=== PATIENT | female | born 1955 | race Hispanic/Latino ===

== ENCOUNTER 2016-06-21 09:33 | Emergency (ER) | payer OTHER, MEDICARE ==
[2016-06-21 09:34] VITALS: BMI 29.7
--- NOTE | 2016-06-21 10:04 | ED PDOC ---
Arrival/HPI - General Chief Complaint: Lower Extremity Problem/Injury Time Seen by Provider: 06/21/16 09:45 Historian: Patient - History of Present Illness Narrative History of Present Illness (Text): 06/21/16 10:00 60yr old female presents today with right foot cast. pt states her screen printing stencil preparer requested that she come to the ER to have cast removed. no fever/chills. denies pain. pt states cast was wet and she has wound and her screen printing stencil preparer advised her to come in to have the cast removed. Patient states she had a cast applied last week and it is to be changed every week or sooner if the cast gets wet. Patient states she felt that the cast was damp yesterday so when she called her screen printing stencil preparer he advised her not to wait until Friday and to come into the emergency room to have the cast removed. Time/Duration: Other (1 day) Symptom Course: Unchanged Quality: Other (NO PAIN) Past Medical History - Provider Review Nursing Documentation Reviewed: Yes - Travel History Have you recently traveled outside [place] w/in the past 3 mons?: No - Cardiac Hx Atrial Fibrillation: Yes Hx Hypertension: Yes - Pulmonary Hx Respiratory Disorders: No - Neurological Other/Comment: NEUROPATHY - HEENT Hx HEENT Disorder: Yes - Renal Hx Renal Disorder: No - Endocrine/Metabolic Hx Diabetes Mellitus Type 2: Yes - Hematological/Oncological Hx Blood Disorders: No - Integumentary Hx Dermatological Disorder: No - Musculoskeletal/Rheumatological Other/Comment: CHARCOT FOOT - Gastrointestinal Hx Gastroesophageal Reflux: Yes - Genitourinary/Gynecological Hx Genitourinary Disorders: No - Psychiatric Hx Anxiety: Yes Hx Substance Use: No - Surgical History Hx Orthopedic Surgery: Yes Other/Comment: BACK SURGERY - Anesthesia Hx Anesthesia: Yes Family/Social History - Physician Review Nursing Documentation Reviewed: Yes Family/Social History: Unknown Family HX Smoking Status: Former Smoker Hx Alcohol Use: Yes Frequency of alcohol use: Socially Hx Substance Use: No Allergies/Home Meds Allergies/Adverse Reactions: Allergies cephalexin [From Keflex] Allergy (Verified 06/21/16 09:37) RASH dexamethasone [From Decadron] Allergy (Verified 06/21/16 09:37) DIZZINESS dexamethasone sod phosphate [From Decadron] Allergy (Verified 06/21/16 09:37) DIZZINESS furosemide [From Lasix] Allergy (Verified 06/21/16 09:37) URTICARIA Sulfa (Sulfonamide Antibiotics) Allergy (Verified 06/21/16 09:37) RASH Home Medications: Home Meds Medication Instructions Recorded Confirmed Acetaminophen [Tylenol Extra 1 tab PO Q6H PRN 11/13/15 06/21/16 Strength] Alprazolam [Xanax] 0.5 mg PO QID PRN 11/13/15 06/21/16 Apixaban [Eliquis] 1 tab PO BID 11/13/15 06/21/16 Carvedilol [Coreg] 25 mg PO BID 11/13/15 06/21/16 Gabapentin 300 mg PO QID 11/13/15 06/21/16 Janumet 50-1,000 mg Tablet 1 tab PO BID 11/13/15 06/21/16 Latanoprost 0.005% Opht [Xalatan 1 drop OU HS 11/13/15 06/21/16 Opht] Pantoprazole Sodium [Protonix] 1 tab PO DAILY 11/13/15 06/21/16 Spironolactone [Aldactone] 1 tab PO DAILY 11/13/15 06/21/16 Venlafaxine [Effexor XR] 75 mg PO DAILY 11/13/15 06/21/16 Review of Systems - Review of Systems Constitutional: absent: Fatigue, Fevers Respiratory: absent: SOB, Cough Cardiovascular: absent: Chest Pain, Palpitations Gastrointestinal: absent: Abdominal Pain, Nausea, Vomiting Genitourinary Female: absent: Dysuria Musculoskeletal: absent: Arthralgias Skin: Skin Lesions (foot wound). absent: Rash, Pruritis Neurological: absent: Headache, Dizziness Physical Exam Vital Signs Reviewed: Yes Vital Signs Temp Pulse Resp BP Pulse Ox 06/21/16 09:44 98.2 F 94 H 16 122/82 99 Temperature: Afebrile Blood Pressure: Normal Pulse: Regular Respiratory Rate: Normal Appearance: Positive for: Well-Appearing, Non-Toxic, Comfortable Pain Distress: None Mental Status: Positive for: Alert and Oriented X 3 - Systems Exam Head: Present: Atraumatic Respiratory/Chest: Present: Clear to Auscultation, Good Air Exchange. No: Respiratory Distress, Accessory Muscle Use Cardiovascular: Present: Regular Rate and Rhythm, Normal S1, S2. No: Murmurs Lower Extremity: Present: Other (total control cast to right leg; ) Neurological: Present: GCS=15 Skin: Present: Warm, Dry, Normal Color Psychiatric: Present: Alert, Oriented x 3 Medical Decision Making ED Course and Treatment: 06/21/16 10:04 60-year-old female presents sent in by screen printing stencil preparer Dr. Jason Rucker for cast removal. Case was discussed with Dr. Rucker in depth. He would like podiatry resident to remove the cast. He states there is a wound that needs to be cleaned with Betadine and in a posterior splint should be applied. Patient will then follow- up in the office with Dr. Rucker on Friday Case discussed with podiatry resident: She is unable to come to the ER. 06/21/16 10:34 case again discussed with dr. Rucker; He would like me to remove the cast and place the patient in a posterior short leg splint. cast removed. there is a dime shaped wound to the plantar lateral aspect of the foot; no surrounding erythema; no purulent discharge. wound cleaned with saline and betadine; dressing applied. posterior short leg splint applied. advised f/u with screen printing stencil preparer on friday. advised walking on toes. Patient verbalizes understanding of discharge instructions and need for immediate followup. impression: cast removal Walk on your toes, use walker Follow up with dr. Rucker on friday return if symptoms worsen,persist or if new symptoms develop. Procedures - Splinting Location: right leg Hand-Made Type: fiberglass Splint: posterior walking (posterior short leg splint.) Pre-Proc Neuro Vasc Exam: normal Post-Proc Neuro Vasc Exam: normal Disposition/Present on Arrival - Present on Arrival Any Indicators Present on Arrival: Yes History of DVT/PE: No History of Uncontrolled Diabetes: Yes Urinary Catheter: No History of Decub. Ulcer: No History Surgical Site Infection Following: None - Disposition Have Diagnosis and Disposition been Completed?: Yes Diagnosis: Visit for cast removal Disposition: HOME/ ROUTINE Disposition Time: Patient Plan: Discharge Condition: GOOD Additional Instructions: Walk on your toes, use walker Follow up with dr. Rucker on friday return if symptoms worsen,persist or if new symptoms develop. Referrals: eNftaly Fabian MD [Primary Care Provider] - Follow up with primary Jason Rucker DPM [Staff Provider] - Follow up with primary
[2016-06-21 10:09] VITALS: BP 122/82; PULSE 94; RESP 16; TEMP 98.2; O2SAT 99
== END 2016-06-21 11:30 | disposition home or self-care (01) ==
LOC: ED 09:33
DX: Z47.89 Encounter for other orthopedic aftercare (principal)

== ENCOUNTER 2018-04-05 09:45 | Inpatient (IN) | payer OTHER, MEDICARE ==
[2018-04-05] MEDS ORDERED: Sodium Chloride 0.9% 500 ML IV STA (10:52)
[2018-04-05] MEDS ORDERED: Albuterol-Ipratrop 3 mg / 0.5 (3 ml) UD IH STA ×2 (11:04→13:16)
--- NOTE | 2018-04-05 11:04 | ED PDOC ---
Arrival/HPI - General Historian: Patient, Spouse - History of Present Illness Narrative History of Present Illness (Text): 04/05/18 10:58 62F w/ a PMH of HTN, HLD, DM, Afib, Anxiety, GERD, most recently underwent surgery of her R foot for charcot foot, in rehab 1mo for IV Vanc. [place] [facility] [place] for complaints of fever and flu like symptoms. Patient's reported that night prior patient began exhibiting some lethargy and cough. This morning patient is complaining of fevers, chills, productive cough, wheezes, body ache. Reports her home economist recently had the flu. Patient denies any hx of COPD/ Asthma. Patient also reporting some R sided flank pain - reported she had kidney stone months ago however she has no urinary symptoms at this time. Does report some mild nausea. Patient also reports new onset LE Edema after her LE surgery. No chest pain, sob, abd pain, dizziness/lightheaded ness PMH: As above PSH: Charcot Foot, Spinal Stenosis, Lumpectomy, R hemicolectmy - Colon CA Home Rx: Effexor 75 QD, Spironolactone, Janumet BID, Oxycodone 5 TID PRN, Eliquis 5 BID, Protonix, Coreg 25 BID, Gabapentin 300 QID, PMD: Rui Cardio: Yael ID: Se Social: Former smoker -20-30 pack year quit 35 years ago, EtOH denies, Illicit Denies Allergies: Keflex, Dexamethasone, Lasix, Sulfa - as per chart 04/05/18 11:17 Time/Duration: Prior to Arrival, 24 hours Symptom Onset: Sudden Symptom Course: Worsening <Curtis Sharif - Last Filed: 04/05/18 14:26> <Neeraj Barahona - Last Filed: 04/05/18 15:32> - General Chief Complaint: Flu-like Symptoms Time Seen by Provider: 04/05/18 09:53 Past Medical History - Provider Review Nursing Documentation Reviewed: Yes - Cardiac Hx Cardiac Disorders: Yes Hx Atrial Fibrillation: Yes Hx Hypertension: Yes - Pulmonary Hx Respiratory Disorders: No - Neurological Hx Neurological Disorder: Yes Other/Comment: NEUROPATHY - HEENT Hx HEENT Disorder: Yes - Renal Hx Renal Disorder: No - Endocrine/Metabolic Hx Endocrine Disorders: Yes Hx Diabetes Mellitus Type 2: Yes - Hematological/Oncological Hx Blood Disorders: No - Integumentary Hx Dermatological Disorder: No - Musculoskeletal/Rheumatological Hx Musculoskeletal Disorders: Yes Hx Spinal Stenosis: Yes Other/Comment: CHARCOT FOOT - Gastrointestinal Hx Gastrointestinal Disorders: Yes Hx Gastroesophageal Reflux: Yes - Genitourinary/Gynecological Hx Genitourinary Disorders: No - Psychiatric Hx Psychophysiologic Disorder: Yes Hx Anxiety: Yes Hx Substance Use: No - Surgical History Hx Orthopedic Surgery: Yes Other/Comment: BACK SURGERY - Anesthesia Hx Anesthesia: Yes <Curtis Sharif - Last Filed: 04/05/18 14:26> - Provider Review Nursing Documentation Reviewed: Yes <Neeraj Barahona - Last Filed: 04/05/18 15:32> Family/Social History - Physician Review Nursing Documentation Reviewed: Yes Family/Social History: Unknown Family HX Smoking Status: Former Smoker Hx Alcohol Use: Yes Hx Substance Use: No <Curtis Sharif - Last Filed: 04/05/18 14:26> - Physician Review Nursing Documentation Reviewed: Yes <Neeraj Barahona - Last Filed: 04/05/18 15:32> Allergies/Home Meds <Curtis Sharif - Last Filed: 04/05/18 14:26> <Neeraj Barahona - Last Filed: 04/05/18 15:32> Allergies/Adverse Reactions: Allergies cephalexin [From Keflex] Allergy (Verified 04/05/18 09:57) RASH dexamethasone [From Decadron] Allergy (Verified 04/05/18 09:57) DIZZINESS dexamethasone sod phosphate [From Decadron] Allergy (Verified 04/05/18 09:57) DIZZINESS furosemide [From Lasix] Allergy (Verified 04/05/18 09:57) URTICARIA Sulfa (Sulfonamide Antibiotics) Allergy (Verified 04/05/18 09:57) RASH Home Medications: Home Meds Medication Instructions Recorded Confirmed Acetaminophen [Tylenol Extra 1 tab PO Q6H PRN 11/13/15 06/21/16 Strength] Alprazolam [Xanax] 0.5 mg PO QID PRN 11/13/15 06/21/16 Apixaban [Eliquis] 1 tab PO BID 11/13/15 06/21/16 Carvedilol [Coreg] 25 mg PO BID 11/13/15 06/21/16 Gabapentin 300 mg PO QID 11/13/15 06/21/16 Janumet 50-1,000 mg Tablet 1 tab PO BID 11/13/15 06/21/16 Latanoprost 0.005% Opht [Xalatan 1 drop OU HS 11/13/15 06/21/16 Opht] Pantoprazole Sodium [Protonix] 1 tab PO DAILY 11/13/15 06/21/16 Spironolactone [Aldactone] 1 tab PO DAILY 11/13/15 06/21/16 Venlafaxine [Effexor XR] 75 mg PO DAILY 11/13/15 06/21/16 Review of Systems - Physician Review All systems were reviewed & negative as marked: Yes - Review of Systems Constitutional: Fatigue, Fevers Eyes: Normal ENT: Normal Respiratory: Cough, Sputum, Wheezing Cardiovascular: Edema. absent: Chest Pain Gastrointestinal: Nausea. absent: Abdominal Pain, Constipation, Diarrhea, Vomiting Genitourinary Female: absent: Dysuria, Hematuria Musculoskeletal: Arthralgias Skin: Normal. absent: Rash Neurological: Headache. absent: Dizziness Endocrine: Normal Hemo/Lymphatic: Normal Psychiatric: Normal <Curtis Sharif - Last Filed: 04/05/18 14:26> Physical Exam Vital Signs Reviewed: Yes Vital Signs Temp Pulse Resp BP 04/05/18 09:57 100.7 F H 98 H 18 146/77 Temperature: Febrile Blood Pressure: Normal Pulse: Regular Respiratory Rate: Normal Appearance: Positive for: Well-Appearing, Non-Toxic, Comfortable Pain Distress: None Mental Status: Positive for: Alert and Oriented X 3 - Systems Exam Head: Present: Atraumatic, Normocephalic Pupils: Present: PERRL Extroacular Muscles: Present: EOMI Conjunctiva: Present: Normal Mouth: Present: Dry, Other (mucous/ sputum appreciated ) Pharnyx: No: ERYTHEMA, EXUDATE, TONSILS ENLARGED Respiratory/Chest: Present: Wheezes Cardiovascular: Present: Regular Rate and Rhythm, Normal S1, S2. No: Murmurs Abdomen: No: Tenderness, Distention Back: Present: Other (Lower back pain). No: CVA Tenderness, Midline Tenderness Upper Extremity: Present: Normal Inspection Lower Extremity: Present: Edema, Other (RLE w/ external hardware in place ) Neurological: Present: GCS=15, CN II-XII Intact Skin: Present: Warm, Dry, Normal Color. No: Rashes Psychiatric: Present: Alert, Oriented x 3 <Curtis Sharif - Last Filed: 04/05/18 14:26> Vital Signs Temp Pulse Resp BP Pulse Ox 04/05/18 11:44 102 H 18 142/71 98 04/05/18 09:57 100.7 F H 98 H 18 146/77 <JunNeeraj L - Last Filed: 04/05/18 15:32> Medical Decision Making ED Course and Treatment: 04/05/18 11:22 URI - most likely viral in nature Wheezing - most likely due to inflammatory changes - however will follow up LE Edema - venostatic vs cardiogenic CBC/CMP Rapid Flu CXR EKG BNP/ TROP VBG SHOCK BOLUS 500CC Motrin 600mg Duoneb EKG is NSR w/o ST/T wave changes HR 97/min 04/05/18 11:50 Lactate Elevated 2.5 Code sepsis called Vancomycin 1gm stat Merem 500mg stat 04/05/18 13:06 BNP 18,000 D/w Dr. Fabian - Who accepts patient for admission Admit: Sepsis + Possible new onset CHF Hyper kalemic - will recheck K+ post 500cc bolus Patient still complaining of wheezing - will give 2nd DUONEB Solumedrol 125 04/05/18 14:27 - RAD Interpretation Radiology Orders: 04/05/18 10:50 CHEST PORTABLE [RAD] Stat - Medication Orders Current Medication Orders: Sodium Chloride (Sodium Chloride 0.9%) 500 mls @ 999 mls/hr IV .Q31M STA Stop: 04/05/18 11:22 Discontinued Medications Ibuprofen (Motrin Tab) 600 mg PO STAT STA Stop: 04/05/18 10:54 <Curtis Sharif - Last Filed: 04/05/18 14:26> ED Course and Treatment: In agreement with resident note, which includes further HPI details. Patient was seen and evaluated with resident, came up with plan and treatment together. 62 year old female presents complaining of fever and flu-like symptoms. Patient is complaining of fevers, chills, productive cough, wheezes, body ache. Patient is also complaining of right flank pain. Plan: -- CT Abd & pelvis IV Contrast -- Labs -- Morphine, IV Fluids, Merrem, Motrin tab, IV Fluids, Vancomycin -- Blood Culture, Urine Culture -- Urinary Straight Catheterization -- Influenza A B, Procalcitonin -- Urinalysis w micro -- reassess and disposition 04/05/18 11:42 Code sepsis called EKG shows NSR at [address] elevations, nl intervals Patient noted to have UTI. Case was discussed with Dr. Fabian who accepts the admission on his service. There is a new elevated BNP with no previous. CXR shows cardiomegally but no noted congestions or infiltrate. Lungs improved with albuteral tx. Potassium level repeated and normal. 04/05/18 14:31 Patient appears better and perked up more. She denies any shortness of breathe at this time. - Critical Care Critical Care Minutes: 30 minutes - Lab Interpretations Lab Results: pO2 36 mm/Hg (30-55) 04/05/18 11:15 VBG pH 7.35 (7.32-7.43) 04/05/18 11:15 VBG pCO2 51.0 (40-60) 04/05/18 11:15 VBG HCO3 28.2 mmol/l (21-28) H 04/05/18 11:15 VBG Total CO2 29.8 mmol.L (22-28) H 04/05/18 11:15 VBG O2 Sat (Calc) 70.7 % (40-65) H 04/05/18 11:15 VBG Base Excess 1.7 mmol/L (0.0-2.0) 04/05/18 11:15 VBG Potassium 5.5 mmol/L (3.6-5.2) H 04/05/18 11:15 Sodium 133.0 mmol/L (132-148) 04/05/18 11:15 Chloride 101.0 mmol/L (98-107) 04/05/18 11:15 Glucose 165 mg/dl (65-105) H 04/05/18 11:15 Lactate 2.5 mmol/L (0.7-2.1) H 04/05/18 11:15 FiO2 21.0 % 04/05/18 11:15 Crit Value Called To Maria De Jesus thomas research program intern 04/05/18 11:15 Crit Value Called By Cecile 04/05/18 11:15 Blood Gas Notified Time 1138 04/05/18 11:15 PT 33.9 SECONDS (9.4-12.5) H 04/05/18 11:15 INR 3.00 04/05/18 11:15 APTT 41.8 Seconds (26.9-38.3) H 04/05/18 11:15 Troponin I < 0.01 ng/mL 04/05/18 11:15 NT-Pro-B Natriuret Pep 80380 pg/mL (0-450) H 04/05/18 11:15 Total Bilirubin 1.2 mg/dL (0.2-1.3) 04/05/18 11:15 AST 14 U/L (14-36) 04/05/18 11:15 ALT 12 U/L (7-56) 04/05/18 11:15 Alkaline Phosphatase 177 U/L (38-126) H D 04/05/18 11:15 Total Protein 7.3 g/dL (5.8-8.3) 04/05/18 11:15 Albumin 3.5 g/dL (3.0-4.8) 04/05/18 11:15 Globulin 3.9 gm/dL 04/05/18 11:15 Albumin/Globulin Ratio 0.9 (1.1-1.8) L 04/05/18 11:15 Urine Color Yellow (YELLOW) 04/05/18 12:10 Urine Appearance Sl cloudy (CLEAR) 04/05/18 12:10 Urine pH 6.0 (4.7-8.0) 04/05/18 12:10 Ur Specific Stow >= 1.030 (1.005-1.035) 04/05/18 12:10 Urine Protein 100 mg/dL (<30 mg/dL) H 04/05/18 12:10 Urine Glucose (UA) Negative mg/dL (NEGATIVE) 04/05/18 12:10 Urine Ketones Negative mg/dL (NEGATIVE) 04/05/18 12:10 Urine Blood Negative (NEGATIVE) 04/05/18 12:10 Urine Nitrate Positive (NEGATIVE) H 04/05/18 12:10 Urine Bilirubin Negative (NEGATIVE) 04/05/18 12:10 Urine Urobilinogen 1.0 E.U./dL (<1 E.U./dL) H 04/05/18 12:10 Ur Leukocyte Esterase Trace Rosa/uL (NEGATIVE) H 04/05/18 12:10 Urine RBC None /hpf (0-2) 04/05/18 12:10 Urine WBC 10 - 15 /hpf (0-6) H 04/05/18 12:10 Ur Epithelial Cells 6 - 8 /hpf (0-5) H 04/05/18 12:10 Urine Bacteria Mod /hpf (NONE) 04/05/18 12:10 I have reviewed the lab results: Yes - RAD Interpretation Radiology Orders: 04/05/18 10:50 CHEST PORTABLE [RAD] Stat Software Developer Mid Level: Radiologist - EKG Interpretation Interpreted by ED Physician: Yes Type: 12 lead EKG - Medication Orders Current Medication Orders: Vancomycin HCl (Vancomycin 1gm) 1 gm in 250 mls @ 167 mls/hr IVPB STAT STA; Protocol Stop: 04/05/18 13:14 Discontinued Medications Albuterol/Ipratropium (Duoneb 3 Mg/0.5 Mg (3 Ml) Ud) 3 ml IH STAT STA Stop: 04/05/18 11:05 Last Admin: 04/05/18 11:49 Dose: 3 ml Sodium Chloride (Sodium Chloride 0.9%) 500 mls @ 999 mls/hr IV .Q31M STA Stop: 04/05/18 11:22 Last Admin: 04/05/18 11:15 Dose: 999 mls/hr eMAR Start Stop Document 04/05/18 11:15 EQ (Rec: 04/05/18 11:49 EQ [id number]) Intravenous Solution Start Date 04/05/18 Start Time 11:15 Meropenem/Sodium Chloride (Merrem Iv 500 Mg/Ns 50 Ml) 500 mg in 50 mls @ 100 mls/hr IVPB Q8 STA; Protocol Stop: 04/05/18 12:14 Last Admin: 04/05/18 12:02 Dose: 100 mls/hr eMAR Start Stop Document 04/05/18 12:02 EQ (Rec: 04/05/18 12:02 EQ [id number]) Intravenous Solution Start Date 04/05/18 Start Time 12:02 Ibuprofen (Motrin Tab) 600 mg PO STAT STA Stop: 04/05/18 10:54 Last Admin: 04/05/18 11:49 Dose: 600 mg MAR Pain/Vitals Document 04/05/18 11:49 EQ (Rec: 04/05/18 11:49 EQ [id number]) Pain Reassessment Is This A Pain ReAssessment? No Sleep Is patient sleeping during reassessment? No Presence of Pain Presence of Pain Yes <Neeraj Barahona - Last Filed: 04/05/18 15:32> - Scribe Statement The provider has reviewed the documentation as recorded by the Milo Phillips Provider Scribe Attestation: All medical record entries made by the Ishaanibsadi were at my direction and personally dictated by me. I have reviewed the chart and agree that the record accurately reflects my personal performance of the history, physical exam, medical decision making, and the department course for this patient. I have also personally directed, reviewed, and agree with the discharge instructions and disposition. <Neeraj Barahona - Last Filed: 04/05/18 15:32> Disposition/Present on Arrival - Present on Arrival Any Indicators Present on Arrival: Yes History of DVT/PE: No History of Uncontrolled Diabetes: Yes Urinary Catheter: No History of Decub. Ulcer: No History Surgical Site Infection Following: None - Disposition Have Diagnosis and Disposition been Completed?: Yes Disposition Time: 13:10 Patient Plan: Telemetry <Curtis Sharif - Last Filed: 04/05/18 14:26> <Neeraj Barahona - Last Filed: 04/05/18 15:32> - Disposition Diagnosis: Sepsis, UTI (urinary tract infection) Disposition: HOSPITALIZED Patient Problems: Current Active Problems Problem Status Onset Sepsis Acute Condition: STABLE
[2018-04-05 11:30] LABS: BASO # 0.01 K/mm3 (0.0-2.0); BASO % 0.2 % (0.0-3.0); EOS % 0.3 % (1.5-5.0); HEMOGLOBIN 8.9 g/dL (12.0-16.0); LYMPH # 0.6 (1.2-3.4); LYMPH % 9.7 % (22.0-35.0); MEAN CELL VOLUME 86.1 fl (80.0-105.0); MEAN CORPUSCULAR HEMOGLOBIN 24.7 pg (25.0-35.0); MEAN CORPUSCULAR HGB CONC 28.7 g/dl (31.0-37.0); MEAN PLATELET VOLUME 9.5 fl (7.0-11.0); MONO # 0.3 (0.1-0.6); MONO % 5.4 % (1.0-6.0); RBC 3.6 10^6/uL (3.5-6.1); RED CELL DISTRIBUTION WIDTH 18.5 % (11.5-14.5); WHITE BLOOD COUNT 6.1 10^3/uL (4.5-11.0)
[2018-04-05 11:38] LABS: VENOUS BLOOD GAS BASE EXCESS 1.7 mmol/L (0.0-2.0); VENOUS BLOOD GAS PO2 36 mm/Hg (30-55); VENOUS BLOOD PH 7.35 (7.32-7.43)
[2018-04-05 11:40] LABS: PARTIAL THROMBOPLASTIN TIME 41.8 Seconds (26.9-38.3); PROTHROMBIN TIME 33.9 SECONDS (9.4-12.5)
[2018-04-05 11:44] LABS: ALB/GLOB RATIO 0.9 (1.1-1.8); ALBUMIN 3.5 g/dL (3.0-4.8); ALT/SGPT 12 U/L (7-56); AST/SGOT 14 U/L (14-36); BLOOD UREA NITROGEN 11 mg/dL (7-21); CALCIUM 9.1 mg/dL (8.4-10.5); GFR NON-AFRICAN AMERICAN > 60
[2018-04-05] MEDS ORDERED: MEROPENEM 500 MG in NS 500 MG/50 ML BAG IVPB STA (11:45)
[2018-04-05] MEDS ORDERED: Vancomycin 1gm in NS 250ml 1 GM/250 ML BAG IVPB STA (11:45)
[2018-04-05 11:56] LABS: B-TYPE NATRIURETIC PEPTIDE 18000 pg/mL (0-450); TROPONIN I < 0.01 ng/mL
[2018-04-05 12:32] LABS: URINE BILIRUBIN NEGATIVE (NEGATIVE); URINE BLOOD NEGATIVE (NEGATIVE); URINE GLUCOSE (UA) NEGATIVE (NEGATIVE); URINE LEUKOCYTE ESTERASE TRACE Leu/uL (NEGATIVE); URINE PROTEIN 100 mg/dL (<30 mg/dL)
[2018-04-05 12:35] LABS: URINE COLOR YELLOW (YELLOW)
[2018-04-05 12:36] LABS: URINE APPEARANCE SL CLOUDY (CLEAR)
[2018-04-05 12:41] LABS: URINE BACTERIA MOD /hpf
[2018-04-05 14:45] LABS: VENOUS BLOOD GAS BASE EXCESS 2.1 mmol/L (0.0-2.0); VENOUS BLOOD GAS PO2 74 mm/Hg (30-55); VENOUS BLOOD PH 7.47 (7.32-7.43)
[2018-04-05 15:40] VITALS: BMI 31.5
--- NOTE | 2018-04-05 16:16 | CARD ---
APPROVED REPORT Date of service: 04/05/2018 EKG Measurement Heart [id number] <Conclusion> Normal sinus rhythm Rightward axis Nonspecific ST-T abnormalities Abnormal ECG
--- NOTE | 2018-04-05 16:17 | RAD ---
Date of service: 04/05/2018 HISTORY: Sepsis Patient COMPARISON: No prior. FINDINGS: LUNGS: Evaluation of the left lung base is limited due to overlying enlarged cardiac silhouette there may be some minimal atelectasis right lung base. Biapical pleural thickening present. PLEURA: No significant pleural effusion identified, no pneumothorax apparent. CARDIOVASCULAR: Questionable minimal aortic atherosclerotic calcification present. Cardiomegaly. No pulmonary vascular congestion. OSSEOUS STRUCTURES: No significant abnormalities. VISUALIZED UPPER ABDOMEN: Normal. OTHER FINDINGS: None. IMPRESSION: Biapical pleural thickening. Minimal right basilar atelectasis left lung base is poorly evaluated due to overlying with enlarged cardiac silhouette.
[2018-04-05] MEDS: Insulin Reg-LOW-Coverage SC SCH ×2 (16:41→23:46)
--- NOTE | 2018-04-05 17:55 | PCM.SEPTIC ---
Sepsis Progress Note - Reassessment Type Date of Evaluation: 04/05/18 Time of Evaluation: 04:00 Reassessment Type: Non-invasive reassessment - Non Invasive Reassessment Were the most recent vital sign reviewed: Yes Vital Sign (Latest): Temp Pulse Resp BP Pulse Ox 99.5 F 81 18 135/65 98 04/05/18 13:00 04/05/18 16:18 04/05/18 16:18 04/05/18 16:18 04/05/18 16:18 Cardiovascular: Yes: Regular Rate, Rhythm Respiratory: Yes: Normal Breath Sounds. No: Decreased Breath Sounds, Accessory Muscle Use, Rales, Rhonchi, Stridor Capillary Refill: Normal (Less than 2 sec) Pulses: Normal Radial, Normal Dorsalis Pedis, Normal Posterior Tibialis Skin: Normal Color
[2018-04-05] MEDS: oxyCODONE 5 mg Immediate Release Tab PO PRN (20:50)
[2018-04-05] MEDS ORDERED: Iron Sucrose 100 mg/5 ml Inj IVP ONE (22:05)
[2018-04-06] MEDS: Latanoprost 2.5 ml Opht Soln OU SCH ×2 (00:15→23:00)
--- NOTE | 2018-04-06 09:24 | CON ---
DATE OF CONSULTATION: 04/06/2018 REQUESTING PHYSICIAN: Dr. Fabian. REASON FOR CONSULTATION: Dyspnea. HISTORY: This is a 62-year-old woman well-known to me with a history of heart failure with a recovered ejection fraction, prior congestive cardiomyopathy, paroxysmal atrial fibrillation, colon cancer resection, and Charcot foot, who has undergone a complex surgery involving her foot, admitted with fever and flu-like symptoms. She had undergone a rehabilitation stay in [place] after surgery for her Charcot foot. She, over the past several days, had worsening cough and dyspnea. Upon discharge from the rehabilitation center she had marked peripheral edema and had been started on diuretic therapy. She presents to emergency room complaining of fever, chills, productive cough, myalgias and wheezing. PAST MEDICAL HISTORY: Her past history is notable for the problems mentioned above. She also has a history of diabetes, paroxysmal atrial fibrillation, prior right hemicolectomy for colon cancer, prior breast lumpectomy, as well as spinal stenosis and the aforementioned Charcot foot. MEDICATIONS: Medications at home included spironolactone, Janumet, Eliquis Protonix, carvedilol, gabapentin and Effexor. SOCIAL HISTORY: She is a former smoker, having quit many years ago. She denies alcohol use. She is , lives at home with her . 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 ALLERGIES: SHE HAS HAD REACTIONS TO SULFA, FUROSEMIDE, DEXAMETHASONE, AND KEFLEX IN THE PAST. FAMILY HISTORY: Both parents are from age-related illness. REVIEW OF SYSTEMS: Ten-point review of systems is otherwise notable mainly for the problems mentioned above. She has undergone prior back surgeries as well. PHYSICAL EXAMINATION: GENERAL: She is an overweight, middle-aged woman. VITAL SIGNS: Her blood pressure is 136/76 with a pulse of 80 and sinus, respirations are 16. She is currently afebrile. HEENT: Normocephalic, atraumatic. NECK: Supple. No JVD noted. CHEST: Bilateral scattered rhonchi heard. HEART: PMI displaced laterally with a systolic murmur at the left sternal border. ABDOMEN: Soft, protuberant. Normoactive bowel sounds are present. EXTREMITIES: A fixation device is present over her right foot. 2+ peripheral edema is noted to her thighs. SKIN: Warm and dry. PSYCHIATRIC: Moderate anxiety, otherwise normal mood and affect. NEUROLOGICAL: Alert and oriented x3. No gross motor or sensory deficits, although she does have limited motion of her right foot due to the fixation device. DIAGNOSTIC DATA: White count 6.1, hemoglobin and hematocrit are 8.9 and 31 with a platelet count of 295,000. PT/PTT are 3.9 and 41.8. Venous blood gas 7.47, pCO2 of 35, pO2 of 74. Potassium 5.4, repeat is 4.5. BUN and creatinine are 11 and 0.9, glucose 160, magnesium 1.3. Troponin is negative. BNP 18,000. Influenza serology is negative. Chest x-ray reveals increased cardiac silhouette with right basilar atelectasis. Electrocardiogram reveals sinus rhythm with a rightward axis, nonspecific ST-T abnormalities. IMPRESSION: 1. Cough and fever suggestive of acute respiratory illness, possible bronchitis. 2. History of congestive cardiomyopathy with recovered ejection fraction, needs reevaluation at this time. 3. Chronic anemia. 4. Status post right foot surgery. 5. Paroxysmal atrial fibrillation, remains in sinus rhythm; however, remains on Eliquis given recent leg immobilization. 6. Status post colon cancer resection, stable at present. 7. Peripheral edema, unclear if this is due to dependent position and fluid retention versus other cause. RECOMMENDATIONS: Oral diuretic therapy will continue for now. An echocardiogram has been ordered. A CT of the abdomen and pelvis is being planned. Cultures were drawn and are pending. Antibiotics will be continued pending those results. Her current cardiac medications will continue as well. Thank you for this consultation. We will be happy to follow her through her hospital course and make further adjustments as appropriate. Al Conley MD
[2018-04-06] MEDS ORDERED: Iron Sucrose 100 mg/5 ml Inj IVP ONE (09:39)
[2018-04-06] MEDS: Venlafaxine 75 mg ER Cap PO SCH (09:55)
[2018-04-06] MEDS: Insulin Reg-LOW-Coverage SC SCH ×4 (09:56→23:01)
[2018-04-06] MEDS: Pantoprazole 40 mg EC Tab PO SCH (09:56)
[2018-04-06] MEDS: Albuterol-Ipratrop 3 mg / 0.5 (3 ml) UD IH PRN (11:26)
--- NOTE | 2018-04-06 13:45 | CP.PCM.CON ---
<BelenJuan David - Last Filed: 04/06/18 13:42> History of Present Illness - History of Present Illness History of Present Illness: Podiatry consult notes for ; 62 y/o F w/ a PMH of HTN, HLD, DM, Afib, Anxiety, GERD, Neuropathy Seen and evaluated 2 months s/p surgery of her R foot for Charcot foot reconstruction using External fixator. Patient was in rehab 1 M for IV Vanc. Patient states that she had Charcot reconstruction surgery 2 months ago with a surgeon at [facility] (Dr. Nasim Watson) patient states that she had Ex-fix in her foot and her and her nurse used to do daily dressing change using dakins and DSD. She states that she doesn't have pain at the surgery site now. She states that she has tingling, numbness and burning sensation in her feet all the times as she has neuropathy. She states that she came to the hospital this time as she developed UTI. Patient mentioned that 2 weeks ago her legs got hard and edematous.. Patient states that she had fevers, chills, productive cough, wheezes, and body ache yesterday. 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 Patient denies any hx of COPD/ Asthma. . Patient also reports new onset LE Edema after her LE surgery. She denies any chest pain, sob, abd pain, dizziness/lightheaded ness PMH: HTN, HLD, DM, Afib, Anxiety, GERD, Neuropathy. PSH: Charcot Foot, Spinal Stenosis, Lumpectomy, R hemicolectmy - Colon CA Allergies: Keflex, Dexamethasone, Lasix, Sulfa - as per chart Social: Former smoker -20-30 pack year quit 35 years ago, EtOH denies, Illicit Denies Review of Systems - Review of Systems Review of Systems: As per HPI - Constitutional Constitutional: As Per HPI Past Patient History - Past Social History Smoking Status: Never Smoked - CARDIAC Hx Cardiac Disorders: Yes Hx Hypertension: Yes - PULMONARY Hx Respiratory Disorders: No - NEUROLOGICAL Hx Neurological Disorder: Yes Other/Comment: NEUROPATHY - HEENT Hx HEENT Problems: Yes - RENAL Hx Chronic Kidney Disease: No - ENDOCRINE/METABOLIC Hx Endocrine Disorders: Yes Hx Diabetes Mellitus Type 2: Yes - HEMATOLOGICAL/ONCOLOGICAL Hx Blood Disorders: No - INTEGUMENTARY Hx Dermatological Problems: No - MUSCULOSKELETAL/RHEUMATOLOGICAL Hx Falls: No - GASTROINTESTINAL Hx Gastrointestinal Disorders: Yes Hx Gastroesophageal Reflux: Yes - GENITOURINARY/GYNECOLOGICAL Hx Genitourinary Disorders: No - PSYCHIATRIC Hx Psychophysiologic Disorder: Yes Hx Anxiety: Yes - SURGICAL HISTORY Hx Surgeries: Yes (colectomy) Hx Mastectomy: (lumpectomy) Hx Orthopedic Surgery: Yes Other/Comment: BACK SURGERY - ANESTHESIA Hx Anesthesia: Yes Meds Allergies/Adverse Reactions: Allergies Allergy/AdvReac Type Severity Reaction Status Date / Time cephalexin [From Keflex] Allergy RASH Verified 04/05/18 09:57 dexamethasone [From Decadron] Allergy DIZZINESS Verified 04/05/18 09:57 dexamethasone sod phosphate Allergy DIZZINESS Verified 04/05/18 09:57 [From Decadron] furosemide [From Lasix] Allergy URTICARIA Verified 04/05/18 09:57 Sulfa (Sulfonamide Allergy RASH Verified 04/05/18 09:57 Antibiotics) - Medications Medications: Current Medications Albuterol/Ipratropium (Duoneb 3 Mg/0.5 Mg (3 Ml) Ud) 3 ml IH [id number] PRN PRN Reason: Cough and congestion Last Admin: 04/06/18 11:26 Dose: 3 ml Alprazolam (Xanax) 0.5 mg PO QID PRN; Protocol PRN Reason: Anxiety Last Admin: 04/06/18 12:00 Dose: 0.5 mg Apixaban (Eliquis) 5 mg PO BID [facility]; Protocol Last Admin: 04/06/18 09:55 Dose: 5 mg Azithromycin (Zithromax) 500 mg PO DAILY [facility]; Protocol Last Admin: 04/06/18 11:23 Dose: 500 mg Carvedilol (Coreg) 25 mg PO BID [facility] Last Admin: 04/06/18 09:56 Dose: 25 mg Docusate Sodium (Colace) 100 mg PO DAILY [facility] Insulin Human Regular (Humulin R Low) 0 units SC [facility]; Protocol Last Admin: 04/06/18 09:56 Dose: 1 units Latanoprost (Xalatan Opht) 0.02 ml OU HS [facility] Last Admin: 04/06/18 00:15 Dose: Not Given Oseltamivir Phosphate (Tamiflu Cap) 75 mg PO BID [facility]; Protocol Stop: 04/10/18 17:58 Last Admin: 04/06/18 09:55 Dose: 75 mg Oxycodone HCl (Oxycodone Immediate Release Tab) 5 mg PO Q4 PRN PRN Reason: Pain, moderate (4-7) Last Admin: 04/05/18 20:50 Dose: 5 mg Pantoprazole Sodium (Protonix Ec Tab) 40 mg PO DAILY [facility] Last Admin: 04/06/18 09:56 Dose: 40 mg Polyethylene Glycol (Miralax) 17 gm PO BID [facility] Venlafaxine HCl (Effexor Xr) 75 mg PO DAILY [facility] Last Admin: 04/06/18 09:55 Dose: 75 mg Physical Exam - Constitutional Appears: Well, Non-toxic, No Acute Distress - Head Exam Head Exam: ATRAUMATIC, NORMOCEPHALIC - Extremities Exam Additional comments: R LE focused exam: Vasc: DP 1/4 & PT is non palpable due to edema, +1 pitting edema of Noted extending up to the R tibial tuberosity, Cap refill < 3 sec to all digits, Temp gradient is warm to warm. No Erythema noted to the Right foot. Neuro: Gross sensation intact while protective sensations demnished. Derm: External fixator at the Right LE. Pin tracts looks clean, dry, No drai nage, No erythema, No clinical signs of active infection. Maceration noted at 2 of the pins on the lateral side. An ulcer noted measuring 1.4 cm X 1.2 cm X 0.4 cm. Nodrainage, No erythema, No probe to bone, No tracking, No undermining, No clinical signs of active infection. MSK: No pain on paplpating the pin tract sites. Pins and fracmes are in place with no signs of failure or loosening of the construct. - Neurological Exam Neurological exam: Alert, Oriented x3 - Psychiatric Exam Psychiatric exam: Normal Affect, Normal Mood Results - Vital Signs Recent Vital Signs: Last Vital Signs Temp 97.9 F 04/06/18 12:00 Pulse 89 04/06/18 12:00 Resp 20 04/06/18 12:00 BP 135/72 04/06/18 12:00 Pulse Ox 93 L 04/06/18 06:00 - Labs Result Diagrams: 04/05/18 11:15 04/05/18 14:35 Labs: Laboratory Results - last 24 hr 0204/05/18 04/05/18 11:15 14:35 14:35 pO2 74 H VBG pH 7.47 H VBG pCO2 35.0 L VBG HCO3 25.5 VBG Total CO2 26.6 VBG O2 Sat (Calc) 98.1 H VBG Base Excess 2.1 H VBG Potassium 4.5 Sodium 133.0 Chloride 103.0 Glucose 151 H Lactate 1.8 FiO2 21.0 Potassium 4.5 POC Glucose (mg/dL) Procalcitonin 0.24 Venous Blood Potassium 4.5 04/05/18 04/05/18 04/06/18 16:26 23:38 07:21 pO2 VBG pH VBG pCO2 VBG HCO3 VBG Total CO2 VBG O2 Sat (Calc) VBG Base Excess VBG Potassium Sodium Chloride Glucose Lactate FiO2 Potassium POC Glucose (mg/dL) 166 H 252 H 188 H Procalcitonin Venous Blood Potassium 04/06/18 11:35 pO2 VBG pH VBG pCO2 VBG HCO3 VBG Total CO2 VBG O2 Sat (Calc) VBG Base Excess VBG Potassium Sodium Chloride Glucose Lactate FiO2 Potassium POC Glucose (mg/dL) 192 H Procalcitonin Venous Blood Potassium Assessment & Plan - Assessment and Plan (Free Text) Assessment: 62 y/o F w/ a PMH of HTN, HLD, DM, Afib, Anxiety, GERD, Neuropathy Seen and evaluated 2 months s/p surgery of her R foot for charcot foot reconstruction using External fixator. Plan: Patient seen and evaluated at bedside Discussed with attending, Dr. Vallejo Charts, labs, vitals reviewed = afebrile, WBC leukocytosis @ 6.1 Wound Cx collected and sent to the lab. Ordered R foot, R ankle and R tib-fibula x-ray Ordered Venous duplex Patient admitted for UTI Ordered dakins solution for wound dressing and pin tract care. Pin tract care using Dakins solution and DSD Ulcer dressing using Dakins wet to dry and DSD. Podiatry will continue to follow up the patient while in house Thank you for consulting podiatry service. - Date & Time Date: 04/06/18 Time: 13:45 <Hector Vallejo - Last Filed: 04/06/18 17:42> Meds - Medications Medications: Current Medications Albuterol/Ipratropium (Duoneb 3 Mg/0.5 Mg (3 Ml) Ud) 3 ml IH [id number] PRN PRN Reason: Cough and congestion Last Admin: 04/06/18 11:26 Dose: 3 ml Alprazolam (Xanax) 0.5 mg PO QID PRN; Protocol PRN Reason: Anxiety Last Admin: 04/06/18 12:00 Dose: 0.5 mg Apixaban (Eliquis) 5 mg PO BID [facility]; Protocol Last Admin: 04/06/18 17:17 Dose: 5 mg Azithromycin (Zithromax) 500 mg PO DAILY [facility]; Protocol Last Admin: 04/06/18 11:23 Dose: 500 mg Carvedilol (Coreg) 25 mg PO BID [facility] Last Admin: 04/06/18 17:17 Dose: 25 mg Docusate Sodium (Colace) 100 mg PO DAILY [facility] Last Admin: 04/06/18 14:39 Dose: 100 mg Meropenem/Sodium Chloride (Merrem Iv 500 Mg/Ns 50 Ml) 500 mg in 50 mls @ 100 mls/hr IVPB Q8 [facility]; Protocol Stop: 04/13/18 14:01 Last Admin: 04/06/18 14:44 Dose: 100 mls/hr Insulin Human Regular (Humulin R Low) 0 units SC [facility]; Protocol Last Admin: 04/06/18 17:19 Dose: Not Given Latanoprost (Xalatan Opht) 0.02 ml OU HS [facility] Last Admin: 04/06/18 00:15 Dose: Not Given Oseltamivir Phosphate (Tamiflu Cap) 75 mg PO BID [facility]; Protocol Stop: 04/10/18 17:58 Last Admin: 04/06/18 17:17 Dose: 75 mg Oxycodone HCl (Oxycodone Immediate Release Tab) 5 mg PO Q4 PRN PRN Reason: Pain, moderate (4-7) Last Admin: 04/06/18 14:44 Dose: 5 mg Pantoprazole Sodium (Protonix Ec Tab) 40 mg PO DAILY [facility] Last Admin: 04/06/18 09:56 Dose: 40 mg Polyethylene Glycol (Miralax) 17 gm PO BID [facility] Last Admin: 04/06/18 17:16 Dose: 17 gm Sodium Hypochlorite (Dakins Solution 0.25%) 0 ml TOP DAILY [facility] Venlafaxine HCl (Effexor Xr) 75 mg PO DAILY [facility] Last Admin: 04/06/18 09:55 Dose: 75 mg Results - Vital Signs Recent Vital Signs: Last Vital Signs Temp 98.9 F 04/06/18 16:56 Pulse 80 04/06/18 17:17 Resp 20 04/06/18 16:56 BP 129/74 04/06/18 17:17 Pulse Ox 96 04/06/18 16:56 - Labs Result Diagrams: 04/05/18 11:15 04/05/18 14:35 Labs: Laboratory Results - last 24 hr 04/05/18 04/06/18 04/06/18 23:38 07:21 11:35 POC Glucose (mg/dL) 252 H 188 H 192 H 04/06/18 15:52 POC Glucose (mg/dL) 169 H Attending/Attestation - Attestation I have personally seen and examined this patient.: Yes I have fully participated in the care of the patient.: Yes I have reviewed all pertinent clinical information: Yes
[2018-04-06] MEDS ORDERED: Albuterol-Ipratrop 3 mg / 0.5 (3 ml) UD IH SCH (14:00)
--- NOTE | 2018-04-06 14:05 | CP.PCM.CON ---
History of Present Illness - History of Present Illness History of Present Illness: 62 year old female with PMH of HTN, DM, dyslipidemia, GERD, anxiety disorder, right charcot foot S/P surgery late 2018 at the [facility] in [place], [place], spinal stenosis, S/P right hemicolectomy, history of lumpectomy came in to [facility] because of subjective fever associated with wheezing, body aches, chills, cough with whitish phlegm. She also reports some right flank pain but no dysuria. She denies headache or dizziness, no chest pain, no SOB at rest, no abdominal pain. She is still complaining of some discomfort on her right foot which still has the immobilizer in place. In the ED, the patient was noted to have a temp of 100.7 F. Infectious diseases consult is requested to further evaluate and manage. Review of Systems - Review of Systems All systems: reviewed and no additional remarkable complaints except (as per HPI) Past Patient History - Past Social History Smoking Status: Never Smoked - CARDIAC Hx Cardiac Disorders: Yes Hx Hypertension: Yes - PULMONARY Hx Respiratory Disorders: No - NEUROLOGICAL Hx Neurological Disorder: Yes Other/Comment: NEUROPATHY - HEENT Hx HEENT Problems: Yes - RENAL Hx Chronic Kidney Disease: No - ENDOCRINE/METABOLIC Hx Endocrine Disorders: Yes Hx Diabetes Mellitus Type 2: Yes - HEMATOLOGICAL/ONCOLOGICAL Hx Blood Disorders: No - INTEGUMENTARY Hx Dermatological Problems: No - MUSCULOSKELETAL/RHEUMATOLOGICAL Hx Falls: No - GASTROINTESTINAL Hx Gastrointestinal Disorders: Yes Hx Gastroesophageal Reflux: Yes - GENITOURINARY/GYNECOLOGICAL Hx Genitourinary Disorders: No - PSYCHIATRIC Hx Psychophysiologic Disorder: Yes Hx Anxiety: Yes - SURGICAL HISTORY Hx Surgeries: Yes (colectomy) Hx Mastectomy: (lumpectomy) Hx Orthopedic Surgery: Yes Other/Comment: BACK SURGERY - ANESTHESIA Hx Anesthesia: Yes Meds Allergies/Adverse Reactions: Allergies Allergy/AdvReac Type Severity Reaction Status Date / Time cephalexin [From Keflex] Allergy RASH Verified 04/05/18 09:57 dexamethasone [From Decadron] Allergy DIZZINESS Verified 04/05/18 09:57 dexamethasone sod phosphate Allergy DIZZINESS Verified 04/05/18 09:57 [From Decadron] furosemide [From Lasix] Allergy URTICARIA Verified 04/05/18 09:57 Sulfa (Sulfonamide Allergy RASH Verified 04/05/18 09:57 Antibiotics) - Medications Medications: Current Medications Alprazolam (Xanax) 0.5 mg PO QID PRN; Protocol PRN Reason: Anxiety Apixaban (Eliquis) 5 mg PO BID [facility]; Protocol Carvedilol (Coreg) 25 mg PO BID [facility] Last Admin: 04/05/18 17:57 Dose: 25 mg Insulin Human Regular (Humulin R Low) 0 units SC A[facility]S [facility]; Protocol Last Admin: 04/05/18 16:41 Dose: Not Given Latanoprost (Xalatan Opht) 0.02 ml OU HS INGE Oseltamivir Phosphate (Tamiflu Cap) 75 mg PO BID [facility]; Protocol Stop: 04/10/18 17:58 Pantoprazole Sodium (Protonix Ec Tab) 40 mg PO DAILY [facility] Venlafaxine HCl (Effexor Xr) 75 mg PO DAILY [facility] Physical Exam - Constitutional Appears: Chronically Ill - Head Exam Head Exam: NORMAL INSPECTION - Respiratory Exam Respiratory Exam: Decreased Breath Sounds - Cardiovascular Exam Cardiovascular Exam: +S1, +S2 - GI/Abdominal Exam GI & Abdominal Exam: Soft. absent: Tenderness - Extremities Exam Additional comments: right foot with immobilizer and pins in place Results - Vital Signs Recent Vital Signs: Last Vital Signs Temp 99.5 F 04/05/18 13:00 Pulse 81 04/05/18 16:18 Resp 18 04/05/18 16:18 BP 135/65 04/05/18 16:18 Pulse Ox 98 04/05/18 16:18 - Labs Result Diagrams: 04/05/18 11:15 04/05/18 14:35 Labs: Laboratory Results - last 24 hr 04/05/18 04/05/18 04/05/18 11:15 11:15 11:15 WBC 6.1 RBC 3.60 Hgb 8.9 L Hct 31.0 L MCV 86.1 MCH 24.7 L MCHC 28.7 L RDW 18.5 H Plt Count 295 MPV 9.5 Neut % (Auto) 84.4 H Lymph % (Auto) 9.7 L [place] % (Auto) 5.4 Eos % (Auto) 0.3 L Baso % (Auto) 0.2 Lymph # (Auto) 0.6 L [place] # (Auto) 0.3 Eos # (Auto) 0.0 Baso # (Auto) 0.01 Absolute Neuts (auto) 5.12 PT 33.9 H INR 3.00 APTT 41.8 H pO2 VBG pH VBG pCO2 VBG HCO3 VBG Total CO2 VBG O2 Sat (Calc) VBG Base Excess VBG Potassium Sodium Chloride Glucose Lactate FiO2 Crit Value Called To Crit Value Called By Blood Gas Notified Time Potassium Carbon Dioxide Anion Gap BUN Creatinine Est GFR ( Amer) Est GFR (Non-Af Amer) POC Glucose (mg/dL) Random Glucose Calcium Phosphorus Magnesium Total Bilirubin AST ALT Alkaline Phosphatase Troponin I NT-Pro-B Natriuret Pep Total Protein Albumin Globulin Albumin/Globulin Ratio Procalcitonin 0.24 Venous Blood Potassium Urine Color Urine Appearance Urine pH Ur Specific [place] Urine Protein Urine Glucose (UA) Urine Ketones Urine Blood Urine Nitrate Urine Bilirubin Urine Urobilinogen Ur Leukocyte Esterase Urine RBC Urine WBC Ur Epithelial Cells Urine Bacteria Influenza Typ A,B (EIA) 04/05/18 04/05/18 04/05/18 11:15 11:15 11:30 WBC RBC Hgb Hct MCV MCH MCHC RDW Plt Count MPV Neut % (Auto) Lymph % (Auto) [place] % (Auto) Eos % (Auto) Baso % (Auto) Lymph # (Auto) [place] # (Auto) Eos # (Auto) Baso # (Auto) Absolute Neuts (auto) PT INR APTT pO2 36 VBG pH 7.35 VBG pCO2 51.0 VBG HCO3 28.2 H VBG Total CO2 29.8 H VBG O2 Sat (Calc) 70.7 H VBG Base Excess 1.7 VBG Potassium 5.5 H Sodium 133.0 134 Chloride 101.0 99 Glucose 165 H Lactate 2.5 H FiO2 21.0 Crit Value Called To Maria De Jesus thomas groover and turner Crit Value Called By [facility] Blood Gas Notified Time 1138 Potassium 5.4 H Carbon Dioxide 27 Anion Gap 13 BUN 11 Creatinine 0.9 Est GFR ( Amer) > 60 Est GFR (Non-Af Amer) > 60 POC Glucose (mg/dL) Random Glucose 160 H Calcium 9.1 Phosphorus 3.9 Magnesium 1.3 L Total Bilirubin 1.2 AST 14 ALT 12 Alkaline Phosphatase 177 H D Troponin I < 0.01 NT-Pro-B Natriuret Pep 28179 H Total Protein 7.3 Albumin 3.5 Globulin 3.9 Albumin/Globulin Ratio 0.9 L Procalcitonin Venous Blood Potassium 5.5 H Urine Color Urine Appearance Urine pH Ur Specific [place] Urine Protein Urine Glucose (UA) Urine Ketones Urine Blood Urine Nitrate Urine Bilirubin Urine Urobilinogen Ur Leukocyte Esterase Urine RBC Urine WBC Ur Epithelial Cells Urine Bacteria Influenza Typ A,B (EIA) Negative for flu a/b 04/05/18 04/05/18 04/05/18 12:10 14:35 14:35 WBC RBC Hgb Hct MCV MCH MCHC RDW Plt Count MPV Neut % (Auto) Lymph % (Auto) [place] % (Auto) Eos % (Auto) Baso % (Auto) Lymph # (Auto) [place] # (Auto) Eos # (Auto) Baso # (Auto) Absolute Neuts (auto) PT INR APTT pO2 74 H VBG pH 7.47 H VBG pCO2 35.0 L VBG HCO3 25.5 VBG Total CO2 26.6 VBG O2 Sat (Calc) 98.1 H VBG Base Excess 2.1 H VBG Potassium 4.5 Sodium 133.0 Chloride 103.0 Glucose 151 H Lactate 1.8 FiO2 21.0 Crit Value Called To Crit Value Called By Blood Gas Notified Time Potassium 4.5 Carbon Dioxide Anion Gap BUN Creatinine Est GFR ( Amer) Est GFR (Non-Af Amer) POC Glucose (mg/dL) Random Glucose Calcium Phosphorus Magnesium Total Bilirubin AST ALT Alkaline Phosphatase Troponin I NT-Pro-B Natriuret Pep Total Protein Albumin Globulin Albumin/Globulin Ratio Procalcitonin Venous Blood Potassium 4.5 Urine Color Yellow Urine Appearance Sl cloudy Urine pH 6.0 Ur Specific [place] >= 1.030 Urine Protein 100 H Urine Glucose (UA) Negative Urine Ketones Negative Urine Blood Negative Urine Nitrate Positive H Urine Bilirubin Negative Urine Urobilinogen 1.0 H Ur Leukocyte Esterase Trace H Urine RBC None Urine WBC 10 - 15 H Ur Epithelial Cells 6 - 8 H Urine Bacteria Mod Influenza Typ A,B (EIA) 04/05/18 16:26 WBC RBC Hgb Hct MCV MCH MCHC RDW Plt Count MPV Neut % (Auto) Lymph % (Auto) [place] % (Auto) Eos % (Auto) Baso % (Auto) Lymph # (Auto) [place] # (Auto) Eos # (Auto) Baso # (Auto) Absolute Neuts (auto) PT INR APTT pO2 VBG pH VBG pCO2 VBG HCO3 VBG Total CO2 VBG O2 Sat (Calc) VBG Base Excess VBG Potassium Sodium Chloride Glucose Lactate FiO2 Crit Value Called To Crit Value Called By Blood Gas Notified Time Potassium Carbon Dioxide Anion Gap BUN Creatinine Est GFR ( Amer) Est GFR (Non-Af Amer) POC Glucose (mg/dL) 166 H Random Glucose Calcium Phosphorus Magnesium Total Bilirubin AST ALT Alkaline Phosphatase Troponin I NT-Pro-B Natriuret Pep Total Protein Albumin Globulin Albumin/Globulin Ratio Procalcitonin Venous Blood Potassium Urine Color Urine Appearance Urine pH Ur Specific [place] Urine Protein Urine Glucose (UA) Urine Ketones Urine Blood Urine Nitrate Urine Bilirubin Urine Urobilinogen Ur Leukocyte Esterase Urine RBC Urine WBC Ur Epithelial Cells Urine Bacteria Influenza Typ A,B (EIA) Assessment & Plan - Assessment and Plan (Free Text) Plan: Assessment systemic inflammatory response syndrome, consider due to UTI R/O healthcare- associated pneumonia HTN DM dyslipidemia GERD anxiety disorder right charcot foot S/P surgery late 2018 at the [facility] in [place], [place] - was apparently on IV Vancomycin for a month at a rehab facility after the surgery spinal stenosis S/P right hemicolectomy history of lumpectomy Plan has been given a dose of IV Vancomycin and will start Cefepime and Zithromax pending blood, urine cx, PCT; reviewed CXR will monitor clinically will try to contact ID physician who treated her at the [facility]
[2018-04-06] MEDS: oxyCODONE 5 mg Immediate Release Tab PO PRN ×2 (14:44→23:02)
[2018-04-06] MEDS: MEROPENEM 500 MG in NS 500 MG/50 ML BAG IVPB SCH ×2 (14:44→22:59)
[2018-04-06] MEDS: POLYETHYLENE GLYCOL 3350 17 GM/Dose PACKET PO SCH (17:16)
--- NOTE | 2018-04-06 19:07 | HP ---
DATE OF EXAM: 04/06/2018 HISTORY OF PRESENT ILLNESS: A 62-year-old white female, recent history of right foot surgery, extensive surgery with external pins. The patient has a history of colon CA, status post resection, history of breast CA in the past, history of chronic atrial fibrillation with Eliquis, has recently been in sinus rhythm. The patient was seen recently in the office with marked extremities of both lower extremities up to the thighs, also low-grade fever, elevated cough, mild change in mental status, also chronic anemia of unknown origin. The patient came to emergency room after 48 hours complaining of low grade fever, mild cough, shortness of breath, change in mental status noted by the family. The patient was seen in the emergency room and was found to have a temperature of 100.4. Hemoglobin 8.9 which is up from 8.4, white count is 6.1. Blood pressure 137/76. She was found to have markedly elevated BNP and severe peripheral edema. Laboratory data also revealed lactate of 2.5 which is elevated. Potassium is 5.4, repeat was 4.5. Blood sugar is 160. Her BNP was 18,000. Troponin was negative. Procalcitonin was 0.24. The patient did have 10 to 15 wbc's in her urine, positive nitrates, positive proteinuria, moderate bacteria and specific gravity greater than 1030. She was negative type A and B flu. The patient was admitted and was started on antibiotics and antiviral medication. She was felt to be slightly intravascularly depleted, so that she was not on intervenous diuretics. Also was found to have a low ejection fraction on echo, she was in sinus rhythm. REVIEW OF SYSTEMS: CONSTITUTIONAL: Positive for shortness of breath, change in mental status, peripheral edema, lethargy and fatigue. CARDIAC: Negative for palpitation, chest pain or diaphoresis. RESPIRATORY: Positive for cough and shortness of breath. GI: Negative for nausea, vomiting, diarrhea. No black stools. NEUROLOGICAL: Positive for lethargy and fatigue. : Positive only for some dysuria. PHYSICAL EXAMINATION: GENERAL: Shows well developed obese white female in wheel chair with a external fixation device of the right foot, 3 + edema bilaterally up to the knees. CHEST: Shows some rhonchi and rales in both bases. HEART: Regular sinus rhythm. No S3, S4 or murmurs. NEUROLOGY: Grossly intact. IMPRESSION: Fever of unknown origin, possibly viral, possibly bacterial, urinary tract infection, possible urosepsis, await cultures, congestive heart failure, ejection fraction, atrial fibrillation and chronic anemia, possible iron deficiency. Neftaly Fabian MD
[2018-04-07] MEDS: MEROPENEM 500 MG in NS 500 MG/50 ML BAG IVPB SCH ×3 (07:04→22:00)
[2018-04-07] MEDS: Albuterol-Ipratrop 3 mg / 0.5 (3 ml) UD IH PRN ×3 (07:26→19:21)
[2018-04-07] MEDS: Insulin Reg-LOW-Coverage SC SCH ×4 (07:30→23:01)
[2018-04-07 08:24] VITALS: O2SAT 98
[2018-04-07] MEDS: Pantoprazole 40 mg EC Tab PO SCH (11:43)
[2018-04-07] MEDS: Venlafaxine 75 mg ER Cap PO SCH (11:44)
[2018-04-07] MEDS: POLYETHYLENE GLYCOL 3350 17 GM/Dose PACKET PO SCH ×2 (11:48→18:59)
[2018-04-07] MEDS: Dakin's Topical 0.25%-Half Strength (480 ml) TOP SCH (11:50)
--- NOTE | 2018-04-07 11:56 | PN ---
DATE: 04/07/2018 SUBJECTIVE: The patient is seen sitting in bed, on telemetry. She feels somewhat better. She is upset over an interaction she had with the data science and iot manager and was not happy with plans that they were making for care of her foot. She is currently afebrile. Her cough and dyspnea have improved. CURRENT MEDICATIONS: Include carvedilol 25 mg b.i.d., DuoNeb inhaler, Effexor 75 mg daily, Eliquis 5 mg b.i.d., insulin coverage, meropenem, MiraLax, Protonix, Tamiflu, Xanax, azithromycin. OBJECTIVE: GENERAL: She is a middle-aged woman, appears comfortable. VITAL SIGNS: Resting blood pressure is 122/70 with pulse of 90 and sinus, respirations are 16. She is afebrile. HEENT: No JVD. CHEST: Bilateral scattered rhonchi heard. HEART: PMI displaced laterally with systolic murmur at the left sternal border. ABDOMEN: Soft, distended. Bowel sounds present. EXTREMITIES: 2 to 3+ leg edema is present. DIAGNOSTIC DATA: Morning blood work is pending. IMPRESSION: 1. Recent bronchitis, clinically improved. 2. History of congestive cardiomyopathy with recovered ejection fraction. 3. Chronic anemia. 4. Status post right foot surgery. 5. Paroxysmal atrial fibrillation, currently in sinus rhythm. 6. Status post colon cancer resection. 7. Peripheral edema, slow to improve. RECOMMENDATIONS: Diuretic therapy will continue for now. An echocardiogram is pending. Antibiotic therapy should continue, respiratory therapy should continue as well. Further recommendations will be made based upon her clinical course and results of the above findings. We will follow along as needed. Al Conley MD
--- NOTE | 2018-04-07 13:30 | RAD ---
Date of service: 04/07/2018 HISTORY: cough COMPARISON: 04/05/2018 TECHNIQUE: Chest PA and lateral FINDINGS: LUNGS: No active pulmonary disease. PLEURA: No significant pleural effusion identified. No pneumothorax apparent. CARDIOVASCULAR: No aortic atherosclerotic calcification present. Moderate cardiomegaly no pulmonary vascular congestion. OSSEOUS STRUCTURES: No significant abnormalities. VISUALIZED UPPER ABDOMEN: Normal. OTHER FINDINGS: None. IMPRESSION: No active disease. Moderate cardiomegaly
--- NOTE | 2018-04-07 14:42 | PN ---
DATE: 04/07/2018 SUBJECTIVE: A 62-year-old white female admitted with change in mental status, confusion, urinary tract infection, acute systolic CHF. OBJECTIVE: Temperature today is 97.9. She is coughing, productive cough. Blood pressure 123/69. She has an history of paroxysmal atrial fibrillation. She has been out of atrial fibrillation, has remained in normal sinus rhythm. She is on Eliquis. Her hemoglobin has been low, currently at 8.9. She received 2 doses of . She is on IV antibiotics, she has had consultation with Dr. Mata. Her chest shows some rhonchi bilaterally. Repeat chest x-ray will be done today. She has no further dysuria. She does have some peripheral edema. We will start her on some oral diuretics. PLAN: For repeat chest x-ray. Continue IV antibiotics. Start oral diuretics. Neftaly Fabian MD
[2018-04-07] MEDS: oxyCODONE 5 mg Immediate Release Tab PO PRN (17:44)
[2018-04-07] MEDS: Latanoprost 2.5 ml Opht Soln OU SCH (23:45)
[2018-04-08] MEDS: MEROPENEM 500 MG in NS 500 MG/50 ML BAG IVPB SCH ×3 (05:27→22:18)
[2018-04-08] MEDS: Albuterol-Ipratrop 3 mg / 0.5 (3 ml) UD IH PRN ×2 (07:20→13:46)
[2018-04-08] MEDS: Insulin Reg-LOW-Coverage SC SCH ×4 (07:47→22:26)
--- NOTE | 2018-04-08 09:08 | CARD ---
APPROVED REPORT Date of service: 04/07/2018 EXAM: Two-dimensional and M-mode echocardiogram with Doppler and color Doppler. INDICATION Congestive Heart Failure 2D DIMENSIONS Left Atrium (2D)5.2 (1.6-4.0cm)IVSd1.1 (0.7-1.1cm) LVDd5.2 (3.9-5.9cm)PWd1.0 (0.7-1.1cm) M-Mode DIMENSIONS Aortic Root3.30 (2.2-3.7cm)Aortic Cusp Exc.1.60 (1.5-2.0cm) Aortic Valve AoV Peak Xrvfqsnw380.0cm/Karin Peak GR.9mmHg Mitral Valve MV E Wrufsgzn388.0cm/sMV A Adhmkewj82.3cm/sE/A ratio2.0 TDI Lateral E' Peak V8.77cm/sMedial E' Peak V7.60cm/sE/Lateral E'18.8 E/Medial E'21.7 Pulmonary Valve PV Peak Gcltvvuy91.7cm/sPV Peak Grad.2mmHg Tricuspid Valve TR Peak [id number]/sRAP [id number] Peak Gr.51mmHg [id number] LEFT VENTRICLE The left ventricle is normal size. There is normal left ventricular wall thickness. The systolic function is moderately to severely impaired. There is global hypokinesis of the left ventricle. RIGHT VENTRICLE The right ventricle is mildly dilated. ATRIA The left atrium is severely dilated. The right atrium is moderately dilated. The interatrial septum is intact with no evidence for an atrial septal defect. AORTIC VALVE The aortic valve is normal in structure. There is trace aortic regurgitation. There is no aortic valvular stenosis. MITRAL VALVE The mitral valve is mildly thickened. Mitral regurgitation is severe. TRICUSPID VALVE The tricuspid valve is normal in structure. There is severe tricuspid regurgitation. PULMONIC VALVE The pulmonic valve is not well visualized. GREAT VESSELS The aortic root is normal in size. Dilated IVC with poor inspiration collapse is consistent with elevated right atrial pressure. PERICARDIAL EFFUSION There is no pleural effusion. There is a small posterior pericardial effusion. <Conclusion> Biatrial enlargement. Mildly dilated RV. Moderate to severe LV global systolic dysfunction with overall EF of 35%. Severe MR. Severe TR. Small posterior pericardial effusion.
[2018-04-08 09:38] LABS: EOS % 0.2 % (1.5-5.0); HEMOGLOBIN 8.3 g/dL (12.0-16.0); LYMPH # 1.1 (1.2-3.4); LYMPH % 23.1 % (22.0-35.0); MEAN CELL VOLUME 85.9 fl (80.0-105.0); MEAN CORPUSCULAR HEMOGLOBIN 24.4 pg (25.0-35.0); MEAN CORPUSCULAR HGB CONC 28.4 g/dl (31.0-37.0); MEAN PLATELET VOLUME 9.7 fl (7.0-11.0); MONO # 0.3 (0.1-0.6); MONO % 6.3 % (1.0-6.0); RBC 3.4 10^6/uL (3.5-6.1); RED CELL DISTRIBUTION WIDTH 18.7 % (11.5-14.5); WHITE BLOOD COUNT 4.8 10^3/uL (4.5-11.0)
[2018-04-08 09:53] LABS: ALB/GLOB RATIO 0.9 (1.1-1.8); ALBUMIN 3.3 g/dL (3.0-4.8); ALT/SGPT 13 U/L (7-56); AST/SGOT 25 U/L (14-36); BLOOD UREA NITROGEN 14 mg/dL (7-21); CALCIUM 8.8 mg/dL (8.4-10.5); GFR NON-AFRICAN AMERICAN > 60
[2018-04-08] MEDS: Dakin's Topical 0.25%-Half Strength (480 ml) TOP SCH (11:44)
[2018-04-08] MEDS: Venlafaxine 75 mg ER Cap PO SCH (11:46)
[2018-04-08] MEDS: Pantoprazole 40 mg EC Tab PO SCH (11:47)
[2018-04-08] MEDS: POLYETHYLENE GLYCOL 3350 17 GM/Dose PACKET PO SCH ×3 (11:47→18:28)
--- NOTE | 2018-04-08 13:47 | CP.PCM.PN ---
<Charlie Carter - Last Filed: 04/08/18 13:43> Subjective - Date & Time of Evaluation Date of Evaluation: 04/08/18 Time of Evaluation: 13:43 - Subjective Subjective: PGY-2 medicine progress note for Dr Jones Patient had itchiness overnight and was given benadryl. This morning she was frustrated by lack of communication - stated she doesn't know why she is here. I answered her questions and she seemed to understand more so. She denied pain, chest pain, dysuria, muscle cramps. Stated she felt better compared to when she came in. Only complaint was b/l leg swelling. Objective - Vital Signs/Intake and Output Vital Signs (last 24 hours): Temp Pulse Resp BP Pulse Ox 97.7 F 94 H 20 162/96 H 98 04/08/18 12:00 04/08/18 12:00 04/08/18 12:00 04/08/18 12:00 04/07/18 06:00 Intake and Output: 04/08/18 04/08/18 06:59 18:59 Intake Total 580 Balance 580 - Medications Medications: Current Medications Acetaminophen (Tylenol 325mg Tab) 650 mg PO Q6H PRN PRN Reason: Fever >100.4 F Last Admin: 04/08/18 11:48 Dose: 650 mg Albuterol/Ipratropium (Duoneb 3 Mg/0.5 Mg (3 Ml) Ud) 3 ml IH [id number] PRN PRN Reason: Cough and congestion Last Admin: 04/08/18 07:20 Dose: 3 ml Alprazolam (Xanax) 0.5 mg PO QID PRN; Protocol PRN Reason: Anxiety Last Admin: 04/08/18 11:48 Dose: 0.5 mg Apixaban (Eliquis) 5 mg PO BID [facility]; Protocol Last Admin: 04/08/18 11:46 Dose: 5 mg Azithromycin (Zithromax) 500 mg PO DAILY [facility]; Protocol Last Admin: 04/08/18 11:47 Dose: 500 mg Carvedilol (Coreg) 25 mg PO BID [facility] Last Admin: 04/08/18 11:43 Dose: 25 mg Docusate Sodium (Colace) 100 mg PO DAILY [facility] Last Admin: 04/08/18 11:59 Dose: Not Given Meropenem/Sodium Chloride (Merrem Iv 500 Mg/Ns 50 Ml) 500 mg in 50 mls @ 100 mls/hr IVPB Q8 [facility]; Protocol Stop: 04/13/18 14:01 Last Admin: 04/08/18 05:27 Dose: 100 mls/hr Magnesium Sulfate (Magnesium Sulfate 2 Gm/50 Ml Water) 2 gm in 50 mls @ 25 mls/hr IVPB Q6H [facility] Stop: 04/08/18 21:44 Insulin Human Regular (Humulin R Low) 0 units SC ACHS [facility]; Protocol Last Admin: 04/08/18 11:49 Dose: Not Given Latanoprost (Xalatan Opht) 0.02 ml OU HS [facility] Last Admin: 04/07/18 23:45 Dose: 0.02 ml Oseltamivir Phosphate (Tamiflu Cap) 75 mg PO BID [facility]; Protocol Stop: 04/10/18 17:58 Last Admin: 04/08/18 11:47 Dose: 75 mg Oxycodone HCl (Oxycodone Immediate Release Tab) 5 mg PO Q4 PRN PRN Reason: Pain, moderate (4-7) Last Admin: 04/07/18 17:44 Dose: 5 mg Pantoprazole Sodium (Protonix Ec Tab) 40 mg PO DAILY [facility] Last Admin: 04/08/18 11:47 Dose: 40 mg Polyethylene Glycol (Miralax) 17 gm PO BID [facility] Last Admin: 04/08/18 11:59 Dose: Not Given Sacubitril/Valsartan (Entresto 24 Mg-26 Mg Tablet) 1 each PO BID [facility] Sodium Hypochlorite (Dakins Solution 0.25%) 0 ml TOP DAILY [facility] Last Admin: 04/08/18 11:44 Dose: Not Given Spironolactone (Aldactone) 25 mg PO BID [facility] Venlafaxine HCl (Effexor Xr) 75 mg PO DAILY [facility] Last Admin: 04/08/18 11:46 Dose: 75 mg - Labs Labs: 04/08/18 09:15 04/08/18 09:15 PT 33.9 SECONDS (9.4-12.5) H 04/05/18 11:15 INR 3.00 04/05/18 11:15 APTT 41.8 Seconds (26.9-38.3) H 04/05/18 11:15 - Constitutional Appears: Well, Non-toxic, No Acute Distress - Head Exam Head Exam: ATRAUMATIC, NORMAL INSPECTION - Eye Exam Eye Exam: EOMI, Normal appearance, PERRL. absent: Scleral icterus - ENT Exam ENT Exam: Mucous Membranes Moist - Neck Exam Neck Exam: Full ROM, Normal Inspection - Respiratory Exam Respiratory Exam: Clear to Ausculation Bilateral, NORMAL BREATHING PATTERN. absent: Rales, Rhonchi, Wheezes - Cardiovascular Exam Cardiovascular Exam: Irregular Rhythm, REGULAR RHYTHM, +S1, +S2, Murmur. absent: Tachycardia - GI/Abdominal Exam GI & Abdominal Exam: Soft, Normal Bowel Sounds. absent: Tenderness - Extremities Exam Extremities Exam: Normal Capillary Refill, Pedal Edema Additional comments: RLE w/ external hardware in place Assessment and Plan - Assessment and Plan (Free Text) Plan: 62 year old female with a PMHx of AFib on eliquis, CHF with recovered EF, prior congestive cardiomyopathy, recent right foot surgery, HTN, HLD, DM2, GERD, anxiety, colon cancer resection, breast lumpectomy who presented with fever and flu-like symptoms: #UTI -urine cx positive for ecoli that is sensitive to all abx as per nataly -blood cx negative -Tmax 100.7 on 04/05 - afebrile since -on azithro 500mg po qd (started 04/06) and merrem 500mg ivpb q8h (started 04/06) to treat UTI and also possibly concurrent HCAP -on tamiflu 75mg po bid (started 04/06) for empiric coverage of flu-like sx - possible concurrent influenza and UTI infection -consulted ID, Dr Mata #Systolic CHF -echo 04/07 showed global systolic dysfunction with EF of 35%; severe MR; severe TR; small posterior pericardial effusion -continue home med coreg 25mg po bid and spironolactone 25mg po bid -cxr showed moderate cardiomegaly -start entresto 1 tablet po bid -strict Is/Os, head of bed 30 degrees, daily weights -consulted cardiology, Dr Conley #Atrial Fibrillation -rate controlled -continue home med eliquis 5mg po bid and coreg 25mg po bid #Anxiety -continue home med valafaxine 75mg po qd and xanax 0.5mg po qid prn #Recent Right Foot Surgery -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 - spent 1 month in [facility] -refused to be seen by our in-house orbitread operator, wishes to follow-up with her surgeon who she normally follows up; refused foot xrays -tylenol 650mg po q6h prn for pain - patient does not want oxycodone for pain control #Hypomagnesemia -replete as necessary #PPX -scds contraindicated, already on home eliquis -GI ppx with protonix 40mg po qd -heart healthy diet Discussed with Dr Jones <Gadiel Jones S - Last Filed: 04/08/18 20:41> Objective - Vital Signs/Intake and Output Vital Signs (last 24 hours): Temp Pulse Resp BP Pulse Ox 97.2 F L 94 H 20 153/95 H 98 04/08/18 18:00 04/08/18 18:10 04/08/18 18:00 04/08/18 18:10 04/07/18 06:00 Intake and Output: 04/08/18 04/09/18 18:59 06:59 Intake Total 780 100 Output Total 800 Balance -20 100 - Medications Medications: Current Medications Acetaminophen (Tylenol 325mg Tab) 650 mg PO Q6H PRN PRN Reason: Fever >100.4 F Last Admin: 04/08/18 18:11 Dose: 650 mg Albuterol/Ipratropium (Duoneb 3 Mg/0.5 Mg (3 Ml) Ud) 3 ml IH [id number] PRN PRN Reason: Cough and congestion Last Admin: 04/08/18 13:46 Dose: 3 ml Alprazolam (Xanax) 0.5 mg PO QID PRN; Protocol PRN Reason: Anxiety Last Admin: 04/08/18 18:10 Dose: 0.5 mg Apixaban (Eliquis) 5 mg PO BID [facility]; Protocol Last Admin: 04/08/18 18:10 Dose: 5 mg Azithromycin (Zithromax) 500 mg PO DAILY [facility]; Protocol Last Admin: 04/08/18 11:47 Dose: 500 mg Carvedilol (Coreg) 25 mg PO BID [facility] Last Admin: 04/08/18 18:10 Dose: 25 mg Docusate Sodium (Colace) 100 mg PO DAILY [facility] Last Admin: 04/08/18 11:59 Dose: Not Given Meropenem/Sodium Chloride (Merrem Iv 500 Mg/Ns 50 Ml) 500 mg in 50 mls @ 100 mls/hr IVPB Q8 [facility]; Protocol Stop: 04/13/18 14:01 Last Admin: 04/08/18 13:51 Dose: 100 mls/hr Magnesium Sulfate (Magnesium Sulfate 2 Gm/50 Ml Water) 2 gm in 50 mls @ 25 mls/hr IVPB Q6H [facility] Stop: 04/08/18 21:44 Last Admin: 04/08/18 15:40 Dose: 25 mls/hr Insulin Human Regular (Humulin R Low) 0 units SC ACHS [facility]; Protocol Last Admin: 04/08/18 16:37 Dose: Not Given Latanoprost (Xalatan Opht) 0.02 ml OU HS [facility] Last Admin: 04/07/18 23:45 Dose: 0.02 ml Oseltamivir Phosphate (Tamiflu Cap) 75 mg PO BID [facility]; Protocol Stop: 04/10/18 17:58 Last Admin: 04/08/18 18:10 Dose: 75 mg Oxycodone HCl (Oxycodone Immediate Release Tab) 5 mg PO Q4 PRN PRN Reason: Pain, moderate (4-7) Last Admin: 04/07/18 17:44 Dose: 5 mg Pantoprazole Sodium (Protonix Ec Tab) 40 mg PO DAILY [facility] Last Admin: 04/08/18 11:47 Dose: 40 mg Polyethylene Glycol (Miralax) 17 gm PO BID [facility] Last Admin: 04/08/18 18:28 Dose: Not Given Sacubitril/Valsartan (Entresto 24 Mg-26 Mg Tablet) 1 each PO BID [facility] Last Admin: 04/08/18 18:10 Dose: 1 each Sodium Hypochlorite (Dakins Solution 0.25%) 0 ml TOP DAILY [facility] Last Admin: 04/08/18 11:44 Dose: Not Given Spironolactone (Aldactone) 25 mg PO BID [facility] Last Admin: 04/08/18 18:10 Dose: 25 mg Venlafaxine HCl (Effexor Xr) 75 mg PO DAILY [facility] Last Admin: 04/08/18 11:46 Dose: 75 mg - Labs Labs: 04/08/18 09:15 04/08/18 09:15 PT 33.9 SECONDS (9.4-12.5) H 04/05/18 11:15 INR 3.00 04/05/18 11:15 APTT 41.8 Seconds (26.9-38.3) H 04/05/18 11:15 Assessment and Plan - Assessment and Plan (Free Text) Plan: Pt seen and examined by me. I have reviewed the note of the director of graduate medical education and I agree with it. I have discussed the assessment and plan with the resident. I have reviewed the medications and the last labs. Pt with UTI secondary to E Coli. She is on IV Abx She has CHF- due to systolic dysfunction. Pt with A fib on Eliquis. She has anxiety and is on Xanax. She is on Tamiflu for possible flu. It is less likely. She refused to be seen by Podiatry. She does not wish to go to [facility] as she was already there and prefers to go home.
--- NOTE | 2018-04-08 13:47 | CP.PCM.PN ---
Subjective - Date & Time of Evaluation Date of Evaluation: 04/07/18 Time of Evaluation: 09:25 - Subjective Subjective: Afebrile, no dysuria currently, no cough currently but anxious about her overall health. Objective - Vital Signs/Intake and Output Vital Signs (last 24 hours): Temp Pulse Resp BP Pulse Ox 97.9 F 89 20 135/72 93 L 04/06/18 12:00 04/06/18 12:00 04/06/18 12:00 04/06/18 12:00 04/06/18 06:00 Intake and Output: 04/06/18 04/06/18 06:59 18:59 Intake Total 460 Balance 460 - Medications Medications: Current Medications Albuterol/Ipratropium (Duoneb 3 Mg/0.5 Mg (3 Ml) Ud) 3 ml IH [id number] PRN PRN Reason: Cough and congestion Last Admin: 04/06/18 11:26 Dose: 3 ml Alprazolam (Xanax) 0.5 mg PO QID PRN; Protocol PRN Reason: Anxiety Last Admin: 04/06/18 12:00 Dose: 0.5 mg Apixaban (Eliquis) 5 mg PO BID [facility]; Protocol Last Admin: 04/06/18 09:55 Dose: 5 mg Azithromycin (Zithromax) 500 mg PO DAILY [facility]; Protocol Last Admin: 04/06/18 11:23 Dose: 500 mg Carvedilol (Coreg) 25 mg PO BID [facility] Last Admin: 04/06/18 09:56 Dose: 25 mg Docusate Sodium (Colace) 100 mg PO DAILY [facility] Meropenem/Sodium Chloride (Merrem Iv 500 Mg/Ns 50 Ml) 500 mg in 50 mls @ 100 m ls/hr IVPB Q8 [facility]; Protocol Stop: 04/13/18 14:01 Insulin Human Regular (Humulin R Low) 0 units SC ACHS [facility]; Protocol Last Admin: 04/06/18 09:56 Dose: 1 units Latanoprost (Xalatan Opht) 0.02 ml OU HS [facility] Last Admin: 04/06/18 00:15 Dose: Not Given Oseltamivir Phosphate (Tamiflu Cap) 75 mg PO BID [facility]; Protocol Stop: 04/10/18 17:58 Last Admin: 04/06/18 09:55 Dose: 75 mg Oxycodone HCl (Oxycodone Immediate Release Tab) 5 mg PO Q4 PRN PRN Reason: Pain, moderate (4-7) Last Admin: 04/05/18 20:50 Dose: 5 mg Pantoprazole Sodium (Protonix Ec Tab) 40 mg PO DAILY [facility] Last Admin: 04/06/18 09:56 Dose: 40 mg Polyethylene Glycol (Miralax) 17 gm PO BID [facility] Venlafaxine HCl (Effexor Xr) 75 mg PO DAILY [facility] Last Admin: 04/06/18 09:55 Dose: 75 mg - Labs Labs: 04/05/18 11:15 04/05/18 14:35 PT 33.9 SECONDS (9.4-12.5) H 04/05/18 11:15 INR 3.00 04/05/18 11:15 APTT 41.8 Seconds (26.9-38.3) H 04/05/18 11:15 - Constitutional Appears: Chronically Ill - Head Exam Head Exam: NORMAL INSPECTION - Respiratory Exam Respiratory Exam: Decreased Breath Sounds - Cardiovascular Exam Cardiovascular Exam: +S1, +S2 - GI/Abdominal Exam GI & Abdominal Exam: Soft. absent: Tenderness - Extremities Exam Additional comments: right foot external fixator in place Assessment and Plan - Assessment and Plan (Free Text) Plan: Assessment systemic inflammatory response syndrome, consider due to UTI with gram negative bacilli R/O healthcare-associated pneumonia HTN DM dyslipidemia GERD anxiety disorder right charcot foot S/P surgery late 2017 at the [facility] in [place], [place] - was apparently on IV Vancomycin for a month at a rehab facility after the surgery spinal stenosis S/P right hemicolectomy history of lumpectomy Plan has been given a dose of IV Vancomycin and continue Cefepime and Zithromax day 3 pending final blood, urine cx results, PCT; reviewed CXR will continue monitor clinically tried to contact ID physician who [facility] but no reply as of yet
--- NOTE | 2018-04-08 14:08 | PN ---
DATE: 04/08/2018 SUBJECTIVE: The patient is seen lying in bed on telemetry. She is upset and tearful. She is concerned that her heart function has deteriorated. She remains afebrile. Edema persists. CURRENT MEDICATIONS: Include Protonix, Tamiflu, Xanax, and Zithromax. OBJECTIVE: GENERAL: She is a middle-aged woman who is emotionally upset. VITAL SIGNS: Her blood pressure is 160/96 with a pulse of 90 and sinus respirations are 16. She is afebrile. HEENT: No JVD. CHEST: Few scattered rhonchi. HEART: PMI displaced laterally with soft tones noted. ABDOMEN: Soft, protuberant with normoactive bowel sounds. EXTREMITIES: 2-3+ leg edema. Right foot remains immobilized. DIAGNOSTIC DATA: Potassium is 4.1, BUN and creatinine of 14 and 0.8. White count is 4.8 with hemoglobin and hematocrit 8.3 and 29.2 and platelet count 284,000. Echocardiogram reveals evidence of biatrial enlargement with moderate to severely reduced LV systolic dysfunction and ejection fraction of 35%. Severe mitral and tricuspid regurgitation present. Small pericardial effusion is noted. Repeat chest x-ray reveals a large cardiac silhouette with clear lung lovett. IMPRESSION: 1. Recent bronchitis, clinically improved. 2. History of congestive cardiomyopathy, now with evidence of worsening left ventricular function. 3. Chronic anemia. 4. Status post right foot surgery. 5. Prior colon cancer resection. 6. Paroxysmal atrial fibrillation, currently in sinus rhythm. 7. Severe mitral and tricuspid regurgitation. RECOMMENDATIONS: Spironolactone therapy will be continued at this time, Entresto will be added as well for her LV dysfunction. She has been unable to take loop diuretics in the past because of a questionable allergy. Sodium and fluid restriction will continue as well. Further plans are made based on clinical course and response the above intervention. We will follow along as needed. Al Conley MD
[2018-04-08] MEDS: Magnesium Sulfate 2 gm/50 ml 2 GM/50 ML BAG IVPB SCH ×2 (15:40→20:31)
[2018-04-08] MEDS: SACUBITRIL 24mg/VALSARTAN 26mg tab PO SCH (18:10)
[2018-04-08] MEDS: Latanoprost 2.5 ml Opht Soln OU SCH (22:18)
[2018-04-09] MEDS: oxyCODONE 5 mg Immediate Release Tab PO PRN (02:45)
[2018-04-09 03:40] VITALS: RESP 19; TEMP 98.3
[2018-04-09] MEDS: MEROPENEM 500 MG in NS 500 MG/50 ML BAG IVPB SCH ×2 (05:53→14:12)
[2018-04-09 07:14] LABS: BASO # 0.01 K/mm3 (0.0-2.0); BASO % 0.2 % (0.0-3.0); EOS % 0.5 % (1.5-5.0); HEMOGLOBIN 8.5 g/dL (12.0-16.0); LYMPH # 0.7 (1.2-3.4); LYMPH % 17.9 % (22.0-35.0); MEAN CELL VOLUME 85.2 fl (80.0-105.0); MEAN CORPUSCULAR HEMOGLOBIN 24.6 pg (25.0-35.0); MEAN CORPUSCULAR HGB CONC 28.9 g/dl (31.0-37.0); MEAN PLATELET VOLUME 9.5 fl (7.0-11.0); MONO # 0.3 (0.1-0.6); MONO % 7.5 % (1.0-6.0); RBC 3.45 10^6/uL (3.5-6.1); RED CELL DISTRIBUTION WIDTH 19.1 % (11.5-14.5); WHITE BLOOD COUNT 4.1 10^3/uL (4.5-11.0)
[2018-04-09 07:47] LABS: ALB/GLOB RATIO 0.9 (1.1-1.8); ALBUMIN 3.2 g/dL (3.0-4.8); ALT/SGPT 14 U/L (7-56); AST/SGOT 19 U/L (14-36); BLOOD UREA NITROGEN 10 mg/dL (7-21); CALCIUM 8.7 mg/dL (8.4-10.5); GFR NON-AFRICAN AMERICAN > 60
[2018-04-09] MEDS: Insulin Reg-LOW-Coverage SC SCH ×3 (08:30→16:53)
[2018-04-09] MEDS: POLYETHYLENE GLYCOL 3350 17 GM/Dose PACKET PO SCH ×2 (10:00→11:01)
[2018-04-09] MEDS: Dakin's Topical 0.25%-Half Strength (480 ml) TOP SCH (10:52)
[2018-04-09] MEDS: Venlafaxine 75 mg ER Cap PO SCH (11:15)
[2018-04-09] MEDS: SACUBITRIL 24mg/VALSARTAN 26mg tab PO SCH ×2 (11:15→17:11)
[2018-04-09] MEDS: Pantoprazole 40 mg EC Tab PO SCH (11:17)
--- NOTE | 2018-04-09 12:02 | PN ---
DATE: 04/09/2018 SUBJECTIVE: The patient is seen sitting in a chair on telemetry. She is feeling somewhat better. Her edema is improved. She is on ampicillin for urinary tract infection. She is tolerating spironolactone and Entresto. CURRENT MEDICATIONS: Include spironolactone 25 mg b.i.d., carvedilol 25 mg b.i.d., albuterol inhaler, Effexor, Eliquis 5 mg b.i.d., Entresto 24/26 mg b.i.d., meropenem, Protonix, Tamiflu, and Xanax. OBJECTIVE: GENERAL: She is a middle-aged woman who appears somewhat anxious. VITAL SIGNS: Blood pressure 146/80 with pulse of 86 and sinus, respirations 16. She is afebrile. HEENT: No JVD. CHEST: Few scattered rhonchi. HEART: PMI displaced laterally with soft systolic murmur present at the lower left sternal border and apex. ABDOMEN: Soft, protuberant. Normoactive bowel sounds. EXTREMITIES: 2+ leg edema. LABORATORY DATA: Potassium 3.7, BUN and creatinine 10 and 0.6, glucose 147. White count 4.1, hemoglobin 8.5 and hematocrit 29.4 with platelet count of 261,000. IMPRESSION: 1. Recent bronchitis, clinically improved. 2. Escherichia coli urinary tract infection. 3. History of congestive cardiomyopathy which had improved, but now with evidence of worsening systolic dysfunction. 4. Chronic anemia. 5. Status post right foot surgery. 6. Prior colon cancer resection. 7. Paroxysmal atrial fibrillation. 8. Severe mitral and tricuspid regurgitation. 9. Peripheral edema. RECOMMENDATIONS: Her current medications will be continued for now. Continue sodium and fluid restriction are advised . From cardiac standpoint, she appears stable for discharge home at this time. Close outpatient followup will be arranged. Al Conley MD
--- NOTE | 2018-04-09 12:17 | CP.PCM.DIS ---
<EmmaCharlie R - Last Filed: 04/09/18 12:18> Provider - Provider Date of Admission: 04/05/18 13:17 Attending physician: Neftaly Fabian MD Primary care physician: Neftaly Fabian MD Consults: 04/05/18 13:36 Physician Consult Routine Comment: Consulting Provider: Ze Armas Consulting Physician: Ze Armas Reason for Consult: sepsis 04/05/18 13:37 Physician Consult Routine Comment: Consulting Provider: Al Conley Consulting Physician: Al Conley Reason for Consult: chf 04/06/18 13:11 [facility] Center/ Hyperbaric Consult Routine Comment: Consulting Provider: Latonya Arriaga Physician Instructions: Reason For Exam: right foot external fixator Time Spent in preparation of Discharge (in minutes): 32 Diagnosis - Discharge Diagnosis (1) Sepsis Status: Resolved Priority: High (2) UTI (urinary tract infection) Status: Resolved Priority: High Hospital Course - Lab Results Lab Results: Micro Results 04/05/18 11:15 Blood Blood Culture - Preliminary NO GROWTH AFTER 4 DAYS 04/05/18 11:45 Blood Blood Culture - Preliminary NO GROWTH AFTER 3 DAYS 04/05/18 12:10 Urine,Clean Catch Urine Culture - Final Escherichia Coli Most Recent Lab Values WBC 4.1 10^3/uL (4.5-11.0) L 04/09/18 06:55 RBC 3.45 10^6/uL (3.5-6.1) L 04/09/18 06:55 Hgb 8.5 g/dL (12.0-16.0) L 04/09/18 06:55 Hct 29.4 % (36.0-48.0) L 04/09/18 06:55 MCV 85.2 fl (80.0-105.0) 04/09/18 06:55 MCH 24.6 pg (25.0-35.0) L 04/09/18 06:55 MCHC 28.9 g/dl (31.0-37.0) L 04/09/18 06:55 RDW 19.1 % (11.5-14.5) H 04/09/18 06:55 Plt Count 261 10^3/uL (120.0-450.0) 04/09/18 06:55 MPV 9.5 fl (7.0-11.0) 04/09/18 06:55 Neut % (Auto) 73.9 % (50.0-68.0) H 04/09/18 06:55 Lymph % (Auto) 17.9 % (22.0-35.0) L 04/09/18 06:55 Hendry % (Auto) 7.5 % (1.0-6.0) H 04/09/18 06:55 Eos % (Auto) 0.5 % (1.5-5.0) L 04/09/18 06:55 Baso % (Auto) 0.2 % (0.0-3.0) 04/09/18 06:55 Lymph # (Auto) 0.7 (1.2-3.4) L 04/09/18 06:55 Hendry # (Auto) 0.3 (0.1-0.6) 04/09/18 06:55 Eos # (Auto) 0.0 (0.0-0.7) 04/09/18 06:55 Baso # (Auto) 0.01 K/mm3 (0.0-2.0) 04/09/18 06:55 Absolute Neuts (auto) 3.06 (1.4-6.5) 04/09/18 06:55 PT 33.9 SECONDS (9.4-12.5) H 04/05/18 11:15 INR 3.00 04/05/18 11:15 APTT 41.8 Seconds (26.9-38.3) H 04/05/18 11:15 pO2 74 mm/Hg (30-55) H 04/05/18 14:35 VBG pH 7.47 (7.32-7.43) H 04/05/18 14:35 VBG pCO2 35.0 (40-60) L 04/05/18 14:35 VBG HCO3 25.5 mmol/l (21-28) 04/05/18 14:35 VBG Total CO2 26.6 mmol.L (22-28) 04/05/18 14:35 VBG O2 Sat (Calc) 98.1 % (40-65) H 04/05/18 14:35 VBG Base Excess 2.1 mmol/L (0.0-2.0) H 04/05/18 14:35 VBG Potassium 4.5 mmol/L (3.6-5.2) 04/05/18 14:35 Sodium 133.0 mmol/L (132-148) 04/05/18 14:35 Chloride 103.0 mmol/L (98-107) 04/05/18 14:35 Glucose 151 mg/dl (65-105) H 04/05/18 14:35 Lactate 1.8 mmol/L (0.7-2.1) 04/05/18 14:35 FiO2 21.0 % 04/05/18 14:35 Crit Value Called To Maria De Jesus thomas nurse charge rn 04/05/18 11:15 Crit Value Called By Cecile 04/05/18 11:15 Blood Gas Notified Time 1138 04/05/18 11:15 Sodium 136 mmol/L (132-148) 04/09/18 06:55 Potassium 3.7 mmol/L (3.6-5.0) 04/09/18 06:55 Chloride 100 mmol/L (98-107) 04/09/18 06:55 Carbon Dioxide 30 mmol/L (21-33) 04/09/18 06:55 Anion Gap 9 (10-20) L 04/09/18 06:55 BUN 10 mg/dL (7-21) 04/09/18 06:55 Creatinine 0.6 mg/dl (0.7-1.2) L 04/09/18 06:55 Est GFR ( Amer) > 60 04/09/18 06:55 Est GFR (Non-Af Amer) > 60 04/09/18 06:55 POC Glucose (mg/dL) 102 mg/dL (65-110) 04/09/18 11:31 Random Glucose 147 mg/dL (70-110) H 04/09/18 06:55 Calcium 8.7 mg/dL (8.4-10.5) 04/09/18 06:55 Phosphorus 3.9 mg/dL (2.5-4.5) 04/05/18 11:15 Magnesium 1.7 mg/dL (1.7-2.2) 04/09/18 06:55 Total Bilirubin 0.6 mg/dL (0.2-1.3) 04/09/18 06:55 AST 19 U/L (14-36) 04/09/18 06:55 ALT 14 U/L (7-56) 04/09/18 06:55 Alkaline Phosphatase 142 U/L (38-126) H 04/09/18 06:55 Troponin I < 0.01 ng/mL 04/05/18 11:15 NT-Pro-B Natriuret Pep 75000 pg/mL (0-450) H 04/05/18 11:15 Total Protein 6.7 g/dL (5.8-8.3) 04/09/18 06:55 Albumin 3.2 g/dL (3.0-4.8) 04/09/18 06:55 Globulin 3.5 gm/dL 04/09/18 06:55 Albumin/Globulin Ratio 0.9 (1.1-1.8) L 04/09/18 06:55 Procalcitonin 0.24 NG/ML (0.19-0.49) 04/05/18 11:15 Venous Blood Potassium 4.5 mmol/L (3.6-5.2) 04/05/18 14:35 Urine Color Yellow (YELLOW) 04/05/18 12:10 Urine Appearance Sl cloudy (CLEAR) 04/05/18 12:10 Urine pH 6.0 (4.7-8.0) 04/05/18 12:10 Ur Specific Nixon >= 1.030 (1.005-1.035) 04/05/18 12:10 Urine Protein 100 mg/dL (<30 mg/dL) H 04/05/18 12:10 Urine Glucose (UA) Negative mg/dL (NEGATIVE) 04/05/18 12:10 Urine Ketones Negative mg/dL (NEGATIVE) 04/05/18 12:10 Urine Blood Negative (NEGATIVE) 04/05/18 12:10 Urine Nitrate Positive (NEGATIVE) H 04/05/18 12:10 Urine Bilirubin Negative (NEGATIVE) 04/05/18 12:10 Urine Urobilinogen 1.0 E.U./dL (<1 E.U./dL) H 04/05/18 12:10 Ur Leukocyte Esterase Trace Rosa/uL (NEGATIVE) H 04/05/18 12:10 Urine RBC None /hpf (0-2) 04/05/18 12:10 Urine WBC 10 - 15 /hpf (0-6) H 04/05/18 12:10 Ur Epithelial Cells 6 - 8 /hpf (0-5) H 04/05/18 12:10 Urine Bacteria Mod /hpf (NONE) 04/05/18 12:10 Influenza Typ A,B (EIA) Negative for flu a/b (NEGATIVE) 04/05/18 11:30 - Hospital Course Hospital Course: 62 year old female with PMH of HTN, DM, dyslipidemia, GERD, anxiety disorder, right charcot foot S/P surgery late 2018 at the [facility] for [facility] in [place], [place], spinal stenosis, S/P right hemicolectomy, history of lumpectomy came in to [facility] because of subjective fever associated with wheezing, body aches, chills, cough with whitish phlegm. She also reports some right flank pain but no dysuria. She denies headache or dizziness, no chest pain, no SOB at rest, no abdominal pain. She is still complaining of some discomfort on her right foot which still has the immobilizer in place. In the ED, the patient was noted to have a temp of 100.7 F. HOSPITAL COURSE: 62 year old female with a PMHx of AFib on eliquis, CHF with recovered EF, prior congestive cardiomyopathy, recent right foot surgery, HTN, HLD, DM2, GERD, anxiety, colon cancer resection, breast lumpectomy who presented with fever and flu-like symptoms: #UTI -urine cx positive for ecoli that is sensitive to all abx as per nataly -blood cx negative -Tmax 100.7 on 04/05 - afebrile since -on azithro 500mg po qd (started 04/06) and merrem 500mg ivpb q8h (started 04/06) to treat UTI and also possibly concurrent HCAP -on tamiflu 75mg po bid (started 04/06) for empiric coverage of flu-like sx - possible concurrent influenza and UTI infection -consulted ID, Dr Mata #Systolic CHF -echo 04/07 showed global systolic dysfunction with EF of 35%; severe MR; severe TR; small posterior pericardial effusion -continue home med coreg 25mg po bid and spironolactone 25mg po bid -cxr showed moderate cardiomegaly -start entresto 1 tablet po bid -strict Is/Os, head of bed 30 degrees, daily weights -consulted cardiology, Dr Conley #Atrial Fibrillation -rate controlled -continue home med eliquis 5mg po bid and coreg 25mg po bid #Anxiety -continue home med valafaxine 75mg po qd and xanax 0.5mg po qid prn #Recent Right Foot Surgery -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 - spent 1 month in [facility] -refused to be seen 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 absent: Scleral icterus - ENT Exam ENT Exam: Mucous Membranes Moist - Neck Exam Neck Exam: Full ROM, Normal Inspection - Respiratory Exam Respiratory Exam: Clear to Ausculation Bilateral, NORMAL BREATHING PATTERN. absent: Rales, Rhonchi, Wheezes - Cardiovascular Exam Cardiovascular Exam: Irregular Rhythm, REGULAR RHYTHM, +S1, +S2, Murmur. absent: Tachycardia - GI/Abdominal Exam GI & Abdominal Exam: Soft, Normal Bowel Sounds. absent: Tenderness - Extremities Exam Extremities Exam: Normal Capillary Refill, Pedal Edema Additional comments: RLE w/ external hardware in place Discharge Plan - Discharge Medications Prescriptions: RX: Spironolactone [Aldactone] 25 mg PO BID #60 tab - Follow Up Plan Condition: STABLE Disposition: HOME/ ROUTINE Instructions: Sepsis in Adults, Sacubitril and Valsartan, Urinary Tract Infection in Women (DC) Additional Instructions: Please follow-up with your primary medical doctor, Dr Fabian, within 7 days of discharge. Please follow-up with your bacteriologist fishery, Dr Conley, within 7 days of discharge. You will need to have close cardiology follow-up going forward. Please ask him to write you a script for Entresto - this is a new medication that you need to be on to treat your CHF. Additionally, please restrict sodium intake and limit fluid intake to less than 1.5 liters per day as this will also help your CHF. Please follow-up with your foot surgeon regarding continued care for your right foot. You were given a script for an antibiotic, Cipro 500mg, take this daily for the next 5 days to treat your UTI. Please continue your normal home medications. Please note the changes to spironolactone. 1. Xanax 0.5mg as needed not to exceed 3 times a day 2. Eliquis 5mg morning and night (this is for your A.Fib) 3. Carvedilol (coreg) 25mg morning and night (this is for your CHF) 4. Latanoprost 0.0005% 1 drop each eye 5. Protonix 40mg every morning (this is for GERD) 6. Spironolactone 25mg morning and night (this is a diuretic to treat your CHF) 7. Venlafaxine 75mg once a day 8. Acetaminophen 650mg every 6 hours as needed for pain 9. Gabapentin 300mg every 6 hours for neuropathy 10. Janumet 50/1000mg morning and night If symptoms return please go to your nearest emergency department. Referrals: Neftaly Fabian MD [Primary Care Provider] - Al Conley MD [Staff Provider] - Clinical Quality Measures - CQM - Heart Failure Ejection Fraction: Less Than 40 % Beta-Terell Prescribed: Carvedilol Angiotensin II Receptor Terell Prescribed: Yes AnticoagulationTherapy for Atrial Fibrillation/Atrialflutter: Yes Aldosterone Antagonist Prescribed: Yes Follow Up Date (must be within 7 days from discharge): 04/16/18 <Gadiel Jones S - Last Filed: 04/10/18 19:21> Provider - Provider Date of Admission: 04/05/18 13:17 Attending physician: Neftaly Fabian MD Primary care physician: Neftaly Fabian MD Consults: 04/05/18 13:36 Physician Consult Routine Comment: Consulting Provider: Ze Armas Consulting Physician: Ze Armas Reason for Consult: sepsis 04/05/18 13:37 Physician Consult Routine Comment: Consulting Provider: Al Conley Consulting Physician: Al Conley Reason for Consult: chf 04/06/18 13:11 Wound Care Center/ Hyperbaric Consult Routine Comment: Consulting Provider: Latonya Arriaga Physician Instructions: Reason For Exam: right foot external fixator Hospital Course - Lab Results Lab Results: Micro Results 04/05/18 11:45 Blood Blood Culture - Final NO GROWTH AFTER 5 DAYS 04/05/18 11:45 Blood Gram Stain - Final TEST NOT PERFORMED 04/05/18 11:15 Blood Blood Culture - Final NO GROWTH AFTER 5 DAYS 04/05/18 11:15 Blood Gram Stain - Final TEST NOT PERFORMED 04/05/18 12:10 Urine,Clean Catch Urine Culture - Final Escherichia Coli Most Recent Lab Values WBC 4.1 10^3/uL (4.5-11.0) L 04/09/18 06:55 RBC 3.45 10^6/uL (3.5-6.1) L 04/09/18 06:55 Hgb 8.5 g/dL (12.0-16.0) L 04/09/18 06:55 Hct 29.4 % (36.0-48.0) L 04/09/18 06:55 MCV 85.2 fl (80.0-105.0) 04/09/18 06:55 MCH 24.6 pg (25.0-35.0) L 04/09/18 06:55 MCHC 28.9 g/dl (31.0-37.0) L 04/09/18 06:55 RDW 19.1 % (11.5-14.5) H 04/09/18 06:55 Plt Count 261 10^3/uL (120.0-450.0) 04/09/18 06:55 MPV 9.5 fl (7.0-11.0) 04/09/18 06:55 Neut % (Auto) 73.9 % (50.0-68.0) H 04/09/18 06:55 Lymph % (Auto) 17.9 % (22.0-35.0) L 04/09/18 06:55 Hendry % (Auto) 7.5 % (1.0-6.0) H 04/09/18 06:55 Eos % (Auto) 0.5 % (1.5-5.0) L 04/09/18 06:55 Baso % (Auto) 0.2 % (0.0-3.0) 04/09/18 06:55 Lymph # (Auto) 0.7 (1.2-3.4) L 04/09/18 06:55 Hendry # (Auto) 0.3 (0.1-0.6) 04/09/18 06:55 Eos # (Auto) 0.0 (0.0-0.7) 04/09/18 06:55 Baso # (Auto) 0.01 K/mm3 (0.0-2.0) 04/09/18 06:55 Absolute Neuts (auto) 3.06 (1.4-6.5) 04/09/18 06:55 PT 33.9 SECONDS (9.4-12.5) H 04/05/18 11:15 INR 3.00 04/05/18 11:15 APTT 41.8 Seconds (26.9-38.3) H 04/05/18 11:15 pO2 74 mm/Hg (30-55) H 04/05/18 14:35 VBG pH 7.47 (7.32-7.43) H 04/05/18 14:35 VBG pCO2 35.0 (40-60) L 04/05/18 14:35 VBG HCO3 25.5 mmol/l (21-28) 04/05/18 14:35 VBG Total CO2 26.6 mmol.L (22-28) 04/05/18 14:35 VBG O2 Sat (Calc) 98.1 % (40-65) H 04/05/18 14:35 VBG Base Excess 2.1 mmol/L (0.0-2.0) H 04/05/18 14:35 VBG Potassium 4.5 mmol/L (3.6-5.2) 04/05/18 14:35 Sodium 133.0 mmol/L (132-148) 04/05/18 14:35 Chloride 103.0 mmol/L (98-107) 04/05/18 14:35 Glucose 151 mg/dl (65-105) H 04/05/18 14:35 Lactate 1.8 mmol/L (0.7-2.1) 04/05/18 14:35 FiO2 21.0 % 04/05/18 14:35 Crit Value Called To Maria De Jesus thomas rn ed 04/05/18 11:15 Crit Value Called By Cecile 04/05/18 11:15 Blood Gas Notified Time 1138 04/05/18 11:15 Sodium 136 mmol/L (132-148) 04/09/18 06:55 Potassium 3.7 mmol/L (3.6-5.0) 04/09/18 06:55 Chloride 100 mmol/L (98-107) 04/09/18 06:55 Carbon Dioxide 30 mmol/L (21-33) 04/09/18 06:55 Anion Gap 9 (10-20) L 04/09/18 06:55 BUN 10 mg/dL (7-21) 04/09/18 06:55 Creatinine 0.6 mg/dl (0.7-1.2) L 04/09/18 06:55 Est GFR ( Amer) > 60 04/09/18 06:55 Est GFR (Non-Af Amer) > 60 04/09/18 06:55 POC Glucose (mg/dL) 144 mg/dL (65-110) H 04/09/18 16:31 Random Glucose 147 mg/dL (70-110) H 04/09/18 06:55 Calcium 8.7 mg/dL (8.4-10.5) 04/09/18 06:55 Phosphorus 3.9 mg/dL (2.5-4.5) 04/05/18 11:15 Magnesium 1.7 mg/dL (1.7-2.2) 04/09/18 06:55 Total Bilirubin 0.6 mg/dL (0.2-1.3) 04/09/18 06:55 AST 19 U/L (14-36) 04/09/18 06:55 ALT 14 U/L (7-56) 04/09/18 06:55 Alkaline Phosphatase 142 U/L (38-126) H 04/09/18 06:55 Troponin I < 0.01 ng/mL 04/05/18 11:15 NT-Pro-B Natriuret Pep 01159 pg/mL (0-450) H 04/05/18 11:15 Total Protein 6.7 g/dL (5.8-8.3) 04/09/18 06:55 Albumin 3.2 g/dL (3.0-4.8) 04/09/18 06:55 Globulin 3.5 gm/dL 04/09/18 06:55 Albumin/Globulin Ratio 0.9 (1.1-1.8) L 04/09/18 06:55 Procalcitonin 0.24 NG/ML (0.19-0.49) 04/05/18 11:15 Venous Blood Potassium 4.5 mmol/L (3.6-5.2) 04/05/18 14:35 Urine Color Yellow (YELLOW) 04/05/18 12:10 Urine Appearance Sl cloudy (CLEAR) 04/05/18 12:10 Urine pH 6.0 (4.7-8.0) 04/05/18 12:10 Ur Specific Nixon >= 1.030 (1.005-1.035) 04/05/18 12:10 Urine Protein 100 mg/dL (<30 mg/dL) H 04/05/18 12:10 Urine Glucose (UA) Negative mg/dL (NEGATIVE) 04/05/18 12:10 Urine Ketones Negative mg/dL (NEGATIVE) 04/05/18 12:10 Urine Blood Negative (NEGATIVE) 04/05/18 12:10 Urine Nitrate Positive (NEGATIVE) H 04/05/18 12:10 Urine Bilirubin Negative (NEGATIVE) 04/05/18 12:10 Urine Urobilinogen 1.0 E.U./dL (<1 E.U./dL) H 04/05/18 12:10 Ur Leukocyte Esterase Trace Rosa/uL (NEGATIVE) H 04/05/18 12:10 Urine RBC None /hpf (0-2) 04/05/18 12:10 Urine WBC 10 - 15 /hpf (0-6) H 04/05/18 12:10 Ur Epithelial Cells 6 - 8 /hpf (0-5) H 04/05/18 12:10 Urine Bacteria Mod /hpf (NONE) 04/05/18 12:10 Influenza Typ A,B (EIA) Negative for flu a/b (NEGATIVE) 04/05/18 11:30 - Hospital Course Hospital Course: Pt seen and examined by me. This is a late entry.I have reviewed the note of the certified medical records coder and I agree with it. I have discussed the assessment and plan with the resident. I have reviewed the medications and the last labs. Pt with Afib and is on Eliquis. Pt with Anxiety and is on Xanax. She did not want to speak to me so I can give her D/C instructions. I did tell her that she is going to be discharged. She was extremely rude to the staff and me. I am not sure why she is angry and does not want to receive instructions. Her CHF is stable.
[2018-04-09 17:46] VITALS: BP 158/86; PULSE 83
== END 2018-04-09 21:12 | disposition home or self-care (01) | DRG 871 ==
LOC: ED 09:45 → ERH 13:17 → 2RSO 21:53
PROVIDERS: ADMIT Internal Medicine; ATTEND Internal Medicine
DX: A41.9 Sepsis, unspecified organism (principal); I50.21 Acute systolic (congestive) heart failure; J18.9 Pneumonia, unspecified organism; I42.0 Dilated cardiomyopathy; I31.3 Pericardial effusion (noninflammatory); N39.0 Urinary tract infection, site not specified; B96.20 Unspecified Escherichia coli [E. coli] as the cause of diseases classified elsewhere; J40 Bronchitis, not specified as acute or chronic; I11.0 Hypertensive heart disease with heart failure; E11.40 Type 2 diabetes mellitus with diabetic neuropathy, unspecified; I48.0 Paroxysmal atrial fibrillation; E78.5 Hyperlipidemia, unspecified; E11.610 Type 2 diabetes mellitus with diabetic neuropathic arthropathy; I08.1 Rheumatic disorders of both mitral and tricuspid valves; E83.42 Hypomagnesemia; I48.2 Chronic atrial fibrillation; K21.9 Gastro-esophageal reflux disease without esophagitis; M48.00 Spinal stenosis, site unspecified; F41.9 Anxiety disorder, unspecified; Y95 Nosocomial condition; D64.9 Anemia, unspecified; Z85.038 Personal history of other malignant neoplasm of large intestine; Z87.891 Personal history of nicotine dependence; Z79.84 Long term (current) use of oral hypoglycemic drugs; Z79.01 Long term (current) use of anticoagulants; Z85.3 Personal history of malignant neoplasm of breast; Z88.2 Allergy status to sulfonamides; Z90.49 Acquired absence of other specified parts of digestive tract